=== PATIENT | female | born 1950 | race Caucasian/White ===

== ENCOUNTER → 2016-06-24 | Outpatient (CLI) | payer BC ==
[~2016-06-24] MED LIST: ALLOPURINOL100 MG PO; AMBIEN10 M1 PO; AMERGE2.5 MG PO; ASPIRIN ENTERIC81 M1 PO; ASPIRIN80 MG PO; CINNAMON500 MG PO; CLARITIN10 MG PO; CLINORIL200 MG PO; COMBIVENT1 AR1 IH; CYMBALTA60 MG PO; FLEXERIL5 MG PO; GLIPIZIDE5 MG PO; IMITREX100 MG PO; JANUMET 500 MG-1 TA1 PO; JANUMET PO; K + POTASSIUM20 MEQ PO; LANTUS SOLOS100 U/M1 SC; LEVOFLOXACIN500 MG PO; LIPITOR10 MG PO; LIPITOR40 MG; LISINOPRIL20 MG PO; LODINE400 MG PO; MUCINEX600 MG PO; NEURONTIN300 MG PO; PAMELOR25 MG PO; PAXIL20 MG PO; PERCOCET 325 MG1 TA5 PO; PREDNICOT10 MG PO; PREDNICOT20 MG PO; SULFASALAZINE500 M1 PO; VERAPAMIL HCL180 MG PO; VERAPAMIL HCL240 M1 PO; VITAMIN B11000 MCG/M IM; VITAMIN B6100 MG PO; VITAMIN D31000 I1 PO; ZITHROMAX Z PA250 MG PO; ZYRTEC10 M1 PO; Zestril,Prinivi40 MG PO; [UNRECOGNIZED DRUG - OTHER] PO
[2016-06-24 10:04] LABS: BILIRUBIN NEGATIVE (NEGATIVE); BLOOD NEGATIVE (NEGATIVE); CLARITY CLEAR (CLEAR); COLOR YELLOW (YELLOW); GLUCOSE NEGATIVE (NEGATIVE); KETONE NEGATIVE (NEGATIVE); LEUKO ESTERASE NEGATIVE (NEGATIVE); NITRITE NEGATIVE (NEGATIVE); PROTEIN NEGATIVE (NEGATIVE); SPECIFIC GRAVITY 1.025 (1.005-1.030); UROBILINOGEN 0.2 E.U./dl (0.2-1.0)
[2016-06-24 10:07] LABS: BASO % 0.6 % (0.0-1.0); EOS # 0.3 10*3/uL (0.0-0.4); EOS % 4.8 % (1.0-4.0); HEMATOCRIT 34.1 % (37.0-47.0); HEMOGLOBIN 11.2 g/dl (12.0-16.0); LYMPH % 29.6 % (27.0-41.0); MEAN CELL VOLUME 98.8 fl (81.0-99.0); MEAN CORPUSCULAR HGB 32.5 pg (27.0-31.0); MEAN CORPUSCULAR HGB CONC 32.8 g/dl (33.0-37.0); MONO # 0.5 10*3/uL (0.1-1.0); NEUT # 3.8 10*3/uL (2.3-7.9); NEUT % 56.7 % (47.0-73.0); PLATELET COUNT AUTOMATED 208 10*3/uL (130-400); RED BLOOD COUNT 3.45 10*6/uL (4.10-5.10); WHITE BLOOD COUNT 6.7 10*3/uL (4.8-10.8)
[2016-06-24 10:13] LABS: BACTERIA TRACE; MUCOUS TRACE
[2016-06-24 10:15] LABS: URINE TP/CRE RATIO 0.1 (<0.21)
[2016-06-24 10:42] LABS: ALBUMIN 3.6 gm/dl (3.1-4.5); BILIRUBIN, TOTAL 0.2 mg/dl (0.2-1.0); PHOSPHOROUS 3.8 mg/dL (2.5-4.9); POTASSIUM 4.6 mmol/L (3.5-5.1); TOTAL PROTEIN 7.3 gm/dL (6.4-8.2)
[2016-06-24 10:46] LABS: PTH INTACT 34.7 pg/mL (14.0-72.0); VITAMIN D, 25-HYDROXY 31.5 ng/mL (30-100)
== END | disposition home or self-care (01) ==
LOC: LAB 09:35
PROVIDERS: Internal Medicine Nephrology
DX: N18.4 Chronic kidney disease, stage 4 (severe) (principal)

== ENCOUNTER → 2016-07-04 | Outpatient (CLI) | payer BC | END | disposition home or self-care (01) | LOC: RAD 14:54 | DX: D86.0 Sarcoidosis of lung (principal) ==

== ENCOUNTER → 2016-07-22 | Outpatient (CLI) | payer BC | END | disposition home or self-care (01) | LOC: LAB 12:27 | DX: D86.0 Sarcoidosis of lung (principal) ==

== ENCOUNTER → 2017-01-08 | Outpatient (CLI) | payer MEDICARE ==
[2017-01-08 10:42] LABS: BILIRUBIN NEGATIVE (NEGATIVE); BLOOD NEGATIVE (NEGATIVE); CLARITY CLEAR (CLEAR); COLOR YELLOW (YELLOW); GLUCOSE NEGATIVE (NEGATIVE); KETONE NEGATIVE (NEGATIVE); LEUKO ESTERASE 1+ (NEGATIVE); NITRITE NEGATIVE (NEGATIVE); PH 5.5 (5.0-9.0); UROBILINOGEN 0.2 E.U./dl (0.2-1.0)
[2017-01-08 10:51] LABS: URINE CREATININE RANDOM 93.2 mg/dL
[2017-01-08 10:52] LABS: BASO % 0.4 % (0.0-1.0); EOS # 0.4 10*3/uL (0.0-0.4); EOS % 4.7 % (1.0-4.0); HEMATOCRIT 35.8 % (37.0-47.0); HEMOGLOBIN 11.7 g/dl (12.0-16.0); LYMPH # 2.1 10*3/uL (1.3-4.4); LYMPH % 27.2 % (27.0-41.0); MEAN CELL VOLUME 99.7 fl (81.0-99.0); MEAN CORPUSCULAR HGB 32.6 pg (27.0-31.0); MEAN CORPUSCULAR HGB CONC 32.7 g/dl (33.0-37.0); MEAN PLATELET VOLUME 10.9 fl (9.6-12.3); MONO # 0.5 10*3/uL (0.1-1.0); MONO % 6.3 % (3.0-9.0); NEUT # 4.6 10*3/uL (2.3-7.9); NEUT % 61.1 % (47.0-73.0); PLATELET COUNT AUTOMATED 202 10*3/uL (130-400); RED BLOOD COUNT 3.59 10*6/uL (4.10-5.10); WHITE BLOOD COUNT 7.6 10*3/uL (4.8-10.8)
[2017-01-08 11:04] LABS: BACTERIA 1+
[2017-01-08 11:12] LABS: ALBUMIN 3.7 gm/dl (3.1-4.5); CREATININE 1.67 mg/dL (0.55-1.02); POTASSIUM 4.9 mmol/L (3.5-5.1); TOTAL PROTEIN 7.5 gm/dL (6.4-8.2)
[2017-01-08 11:19] LABS: THYROID STIM HORMONE (HS) 1.84 uIU/ml (0.358-4.75)
== END | disposition home or self-care (01) ==
LOC: LAB 10:15
PROVIDERS: Internal Medicine; Internal Medicine Nephrology
DX: I12.9 Hypertensive chronic kidney disease with stage 1 through stage 4 chronic kidney disease, or unspecified chronic kidney disease (principal); N18.3 Chronic kidney disease, stage 3 (moderate); E55.9 Vitamin D deficiency, unspecified; E78.00 Pure hypercholesterolemia, unspecified

== ENCOUNTER → 2017-01-19 | Outpatient (CLI) | payer MEDICARE | END | disposition home or self-care (01) | LOC: RAD 13:22 | DX: M16.10 Unilateral primary osteoarthritis, unspecified hip (principal) ==

== ENCOUNTER → 2017-02-17 | Outpatient (CLI) | payer MEDICARE | END | disposition home or self-care (01) | LOC: RAD 17:07 | DX: R22.0 Localized swelling, mass and lump, head (principal) ==

== ENCOUNTER → 2017-03-24 | Outpatient (CLI) | payer MEDICARE ==
[~2017-03-24] MED LIST changes: -AMBIEN10 M1 PO; +AMBIEN5 MG PO; +GERI-HYDROLAC222 M1 T; +GLIPIZIDE10 M2 PO; -GLIPIZIDE5 MG PO; +HALOBETASOL PRO15 GM T; +JANUVIA25 MG PO; -LIPITOR10 MG PO; +LIPITOR20 MG PO; +MULTIPLE VITAM1 EAC1 PO; +PSORCON T; +VIT C PO; +[UNRECOGNIZED DRUG - OTHER] PO; +[UNRECOGNIZED DRUG - OTHER] PO
--- NOTE | ~2017-03-24 | ST ---
[place], [place] EXERCISE STRESS TEST REPORT NAME: ASHLEY CHAN UNIT #: [id number] ROOM: DOCTOR: JAMEEL TRAVIS MD BIRTHDATE: [birth year] DOS: 03/24/2017 LEXISCAN PORTION OF THE LEXISCAN CARDIOLITE Baseline cardiogram, sinus rhythm with poor R-wave progression in the anterior leads, 0.4 mg of Lexiscan, duration of 10 seconds. With Lexiscan, no new EKG changes. No chest pain. Blood pressure and heart rate response was normal. Nuclear images will be reported separately. JAMEEL TRAVIS MD CM:STRESS:EXERCISE STRESS TEST REPORT [id number] JAMEEL TRAVIS MD
== END ==
LOC: CARD 01:07
DX: R94.31 Abnormal electrocardiogram [ECG] [EKG] (principal)

== ENCOUNTER → 2017-05-07 | Outpatient (CLI) | payer MEDICARE | END | disposition home or self-care (01) | LOC: MAMMO 08:01 | DX: Z12.31 Encounter for screening mammogram for malignant neoplasm of breast (principal) ==

== ENCOUNTER → 2017-05-21 | Outpatient (CLI) | payer MEDICARE | END | disposition home or self-care (01) | LOC: MAMMO 05-14 13:30 | DX: R92.8 Other abnormal and inconclusive findings on diagnostic imaging of breast (principal) ==

== ENCOUNTER → 2017-06-02 | Day surgery (SDC) | payer MEDICARE ==
[2017-06-02 13:02] LABS: ACT PARTIAL THROMBO TIME 23.8 SECONDS (20.8-31.5); INTERNATIONAL NORM RATIO 0.9 (2.0-3.5)
== END | disposition home or self-care (01) ==
LOC: SDC 05-28 12:30 → US 05-28 13:00 → RAD 05-28 13:00 → SDC 04:04
DX: N63.11 Unspecified lump in the right breast, upper outer quadrant (principal); I48.91 Unspecified atrial fibrillation; Z88.0 Allergy status to penicillin; Z88.1 Allergy status to other antibiotic agents

== ENCOUNTER → 2017-06-24 | Outpatient (CLI) | payer MEDICARE | END | disposition home or self-care (01) | LOC: MAMMO 08:53 | DX: N63.10 Unspecified lump in the right breast, unspecified quadrant (principal) ==

== ENCOUNTER → 2017-07-09 | Outpatient (CLI) | payer MEDICARE ==
[2017-07-09 16:49] LABS: BASO % 0.5 % (0.0-1.0); EOS # 0.4 10*3/uL (0.0-0.4); EOS % 5.3 % (1.0-4.0); HEMATOCRIT 37.5 % (37.0-47.0); HEMOGLOBIN 12.5 g/dl (12.0-16.0); LYMPH # 2.9 10*3/uL (1.3-4.4); LYMPH % 36.1 % (27.0-41.0); MEAN CELL VOLUME 97.2 fl (81.0-99.0); MEAN CORPUSCULAR HGB 32.4 pg (27.0-31.0); MEAN CORPUSCULAR HGB CONC 33.3 g/dl (33.0-37.0); MEAN PLATELET VOLUME 11.3 fl (9.6-12.3); MONO # 0.7 10*3/uL (0.1-1.0); MONO % 9.1 % (3.0-9.0); NEUT % 48.6 % (47.0-73.0); PLATELET COUNT AUTOMATED 276 10*3/uL (130-400); RED BLOOD COUNT 3.86 10*6/uL (4.10-5.10); RED CELL DISTRI WIDTH 12.6 % (0-14.5); WHITE BLOOD COUNT 8.1 10*3/uL (4.8-10.8)
[2017-07-09 17:14] LABS: ALBUMIN 3.7 gm/dl (3.1-4.5); CREATININE 1.84 mg/dL (0.55-1.02); PHOSPHOROUS 4.5 mg/dL (2.5-4.9); POTASSIUM 4.2 mmol/L (3.5-5.1)
[2017-07-09 18:01] LABS: PTH INTACT 73.7 pg/mL (14.0-72.0); VITAMIN D, 25-HYDROXY 19.3 ng/mL (30-100)
[2017-07-09 20:02] LABS: BILIRUBIN NEGATIVE (NEGATIVE); BLOOD NEGATIVE (NEGATIVE); CLARITY CLEAR (CLEAR); COLOR YELLOW (YELLOW); GLUCOSE NEGATIVE (NEGATIVE); KETONE NEGATIVE (NEGATIVE); LEUKO ESTERASE 1+ (NEGATIVE); NITRITE NEGATIVE (NEGATIVE); SPECIFIC GRAVITY 1.025 (1.005-1.030); UROBILINOGEN 0.2 E.U./dl (0.2-1.0)
[2017-07-09 20:08] LABS: BACTERIA 2+; WBC 21-30 wbc/hpf (0-5)
== END | disposition home or self-care (01) ==
LOC: LAB 15:57
PROVIDERS: Internal Medicine Nephrology
DX: N18.3 Chronic kidney disease, stage 3 (moderate) (principal)

== ENCOUNTER → 2017-10-06 | Outpatient (CLI) | payer MEDICARE ==
[~2017-10-06] MED LIST changes: +PERCOCET 7.5-31 EACH PO; +TRAD5TAB1 PO
== END | disposition home or self-care (01) ==
LOC: US 10:13
DX: N63.10 Unspecified lump in the right breast, unspecified quadrant (principal); L20.89 Other atopic dermatitis

== ENCOUNTER → 2017-12-31 | Outpatient (CLI) | payer MEDICARE ==
[~2017-12-31] MED LIST changes: +CALCIUM500 M1 PO; +KENALOG 0.1%80 GM T; +NORVASC5 MG PO; +NYSTOP60 GM T; +PERCOCET 10-321 EACH PO; +SOMA350 MG PO; +TRAMADOL HCL50 MG PO; +VITAMIN C500 M4 PO; -VITAMIN D31000 I1 PO; +VITAMIN D32000 UNI2 PO
[2017-12-31 19:24] LABS: BILIRUBIN NEGATIVE (NEGATIVE); BLOOD NEGATIVE (NEGATIVE); CLARITY CLEAR (CLEAR); COLOR YELLOW (YELLOW); GLUCOSE NEGATIVE (NEGATIVE); KETONE NEGATIVE (NEGATIVE); LEUKO ESTERASE 1+ (NEGATIVE); NITRITE NEGATIVE (NEGATIVE); SPECIFIC GRAVITY <= 1.005 (1.005-1.030); UROBILINOGEN 0.2 E.U./dl (0.2-1.0)
[2017-12-31 19:25] LABS: BASO % 0.4 % (0.0-1.0); EOS # 0.4 10*3/uL (0.0-0.4); HEMATOCRIT 36.1 % (37.0-47.0); LYMPH # 2.4 10*3/uL (1.3-4.4); LYMPH % 25.8 % (27.0-41.0); MEAN CELL VOLUME 95.5 fl (81.0-99.0); MEAN CORPUSCULAR HGB 31.7 pg (27.0-31.0); MEAN CORPUSCULAR HGB CONC 33.2 g/dl (33.0-37.0); MONO # 0.6 10*3/uL (0.1-1.0); MONO % 6.2 % (3.0-9.0); NEUT # 5.8 10*3/uL (2.3-7.9); NEUT % 63.3 % (47.0-73.0); PLATELET COUNT AUTOMATED 240 10*3/uL (130-400); RED BLOOD COUNT 3.78 10*6/uL (4.10-5.10); RED CELL DISTRI WIDTH 12.4 % (0-14.5); WHITE BLOOD COUNT 9.2 10*3/uL (4.8-10.8)
[2017-12-31 19:30] LABS: BACTERIA TRACE
[2017-12-31 19:36] LABS: ALBUMIN 3.8 gm/dl (3.1-4.5); CREATININE 1.46 mg/dL (0.55-1.02); PHOSPHOROUS 2.7 mg/dL (2.5-4.9); POTASSIUM 4.3 mmol/L (3.5-5.1)
[2017-12-31 19:49] LABS: PTH INTACT 47.3 pg/mL (18.5-88.0); VITAMIN D, 25-HYDROXY 35.5 ng/mL (30-100)
== END | disposition home or self-care (01) ==
LOC: LAB 18:31
PROVIDERS: Internal Medicine Nephrology
DX: N18.3 Chronic kidney disease, stage 3 (moderate) (principal); E55.9 Vitamin D deficiency, unspecified

== ENCOUNTER 2018-01-08 20:27 | Inpatient (IN) | payer MEDICARE ==
[~2018-01-08] VITALS: Ht 154.9 cm; Wt 106.7 kg
--- NOTE | ~2018-01-08 | CON ---
[place], [place] REPORT OF CONSULTATION NAME: ASHLEY CHAN UNIT #: [id number] ROOM: 532 DOCTOR: KEVIN MARIO DPM BIRTHDATE: [birth year] DOS: 01/09/2018 SUBJECTIVE: The patient is a 67-year-old female well known to our practice. The patient underwent surgical resection of bone and repair of Achilles tendon yesterday by Dr. Avila. The patient was unable to get her pain medication postoperatively filled due to history of pain management and subsequently was admitted for pain management. PAST MEDICAL HISTORY: The patient has a past medical history of anxiety, atopic dermatitis, chronic kidney disease stage 3, type 2 diabetes, hyperlipidemia, hypertension, insomnia, migraine headaches, neuropathic pain, osteoarthritis, rheumatoid arthritis, sarcoidosis, vitamin D deficiency. PAST SURGICAL HISTORY: Two sections, bilateral knee replacement, cholecystectomy, tonsillectomy, complete hysterectomy, left foot surgery yesterday. SOCIAL HISTORY: Denies illicit drug use, denies tobacco use. Denies alcohol consumption. FAMILY HISTORY: Father at age 84 of leukemia. Mother at age 82 of emphysema, COPD. ALLERGIES: PENICILLIN, IVP DYE, SULFA. LOWER EXTREMITY EXAMINATION: Pedal pulses palpable. The patient's postoperative dressing and pneumatic walker intact without breakthrough bleeding or complication. Negative Homans sign. No signs of complication. Pain is well controlled today after the medications, which the patient received in house. ASSESSMENT: Achilles tendinosis, exostosis, posterior right calcaneus. Postoperative pain, diabetes. PLAN: Evaluation and management, keep surgical dressing intact, keep leg elevated and apply ice as needed 30 minutes per hour while awake behind the left knee. Continue pneumatic walker and nonweightbearing. The patient is currently on Lovenox 30 mg SC daily and CHAZ hose for VTE prophylaxis. The patient will be seen for continued care and followup while she is inhouse and can be discharged as per discretion of Internal Medicine once the pain is well controlled. [place], [place] REPORT OF CONSULTATION NAME: ASHLEY CHAN UNIT #: [id number] ROOM: 532 DOCTOR: KEVIN MARIO DPM BIRTHDATE: [birth year] KEVIN MARIO DPM CM:CONSTR:REPORT OF CONSULTATION 1119 01/09/18 1705 interface
[~2018-01-08 20:27] MED LIST changes: -CALCIUM500 M1 PO; -KENALOG 0.1%80 GM T; -NORVASC5 MG PO; -NYSTOP60 GM T; -PERCOCET 10-321 EACH PO; -SOMA350 MG PO; -TRAMADOL HCL50 MG PO; -VITAMIN C500 M4 PO
[2018-01-08 20:28] VITALS: BP 117/55
[2018-01-08] MEDS ORDERED: PERCOCET 10-321 EACH PO (21:48)
[2018-01-08] MEDS ORDERED: SOMA350 MG PO (21:50)
[2018-01-08 22:16] VITALS: BP 108/62
[2018-01-08 22:20] VITALS: BP 109/45
[2018-01-08] MEDS ORDERED: NORVASC5 MG PO (22:35)
[2018-01-08] MEDS ORDERED: KENALOG 0.1%80 GM T (22:39)
[2018-01-08] MEDS ORDERED: CALCIUM500 M1 PO (22:41)
[2018-01-08] MEDS ORDERED: VITAMIN C500 M4 PO (22:42)
[2018-01-09] VITALS: BP 106/51
[2018-01-09 06:52] LABS: BASO % 0.1 % (0.0-1.0); HEMATOCRIT 31.3 % (37.0-47.0); HEMOGLOBIN 10.5 g/dl (12.0-16.0); LYMPH # 1.3 10*3/uL (1.3-4.4); LYMPH % 9.8 % (27.0-41.0); MEAN CELL VOLUME 96.6 fl (81.0-99.0); MEAN CORPUSCULAR HGB 32.4 pg (27.0-31.0); MEAN CORPUSCULAR HGB CONC 33.5 g/dl (33.0-37.0); MEAN PLATELET VOLUME 11.6 fl (9.6-12.3); MONO # 0.7 10*3/uL (0.1-1.0); MONO % 5.5 % (3.0-9.0); NEUT # 10.9 10*3/uL (2.3-7.9); NEUT % 84.3 % (47.0-73.0); PLATELET COUNT AUTOMATED 202 10*3/uL (130-400); RED BLOOD COUNT 3.24 10*6/uL (4.10-5.10); RED CELL DISTRI WIDTH 12.3 % (0-14.5); WHITE BLOOD COUNT 12.9 10*3/uL (4.8-10.8)
[2018-01-09 07:18] LABS: ALBUMIN 2.9 gm/dl (3.1-4.5); CREATININE 1.61 mg/dL (0.55-1.02); PHOSPHOROUS 3.3 mg/dL (2.5-4.9); POTASSIUM 5.6 mmol/L (3.5-5.1); TOTAL PROTEIN 6.5 gm/dL (6.4-8.2)
[2018-01-09 07:21] LABS: ACT PARTIAL THROMBO TIME 23.8 SECONDS (20.8-31.5); INTERNATIONAL NORM RATIO 0.9 (2.0-3.5)
[2018-01-09 07:23] LABS: THYROID STIM HORMONE (HS) 0.428 uIU/ml (0.358-4.75)
[2018-01-09 08:00] VITALS: BP 102/48
[2018-01-09 12:00] VITALS: BP 110/55
[2018-01-09 15:13] LABS: CREATININE 1.54 mg/dL (0.55-1.02); POTASSIUM 4.6 mmol/L (3.5-5.1)
[2018-01-09 16:00] VITALS: BP 116/57
[2018-01-09 20:00] VITALS: BP 115/52
[2018-01-10] VITALS: BP 121/58
[2018-01-10 06:01] LABS: BASO % 0.3 % (0.0-1.0); EOS # 0.1 10*3/uL (0.0-0.4); EOS % 0.8 % (1.0-4.0); HEMATOCRIT 30.1 % (37.0-47.0); HEMOGLOBIN 9.9 g/dl (12.0-16.0); LYMPH # 2.5 10*3/uL (1.3-4.4); LYMPH % 28.9 % (27.0-41.0); MEAN CELL VOLUME 96.8 fl (81.0-99.0); MEAN CORPUSCULAR HGB 31.8 pg (27.0-31.0); MEAN CORPUSCULAR HGB CONC 32.9 g/dl (33.0-37.0); MEAN PLATELET VOLUME 12.2 fl (9.6-12.3); MONO # 0.8 10*3/uL (0.1-1.0); MONO % 9.1 % (3.0-9.0); NEUT # 5.3 10*3/uL (2.3-7.9); NEUT % 60.6 % (47.0-73.0); PLATELET COUNT AUTOMATED 169 10*3/uL (130-400); RED BLOOD COUNT 3.11 10*6/uL (4.10-5.10); RED CELL DISTRI WIDTH 12.5 % (0-14.5); WHITE BLOOD COUNT 8.7 10*3/uL (4.8-10.8)
[2018-01-10 06:19] LABS: ALBUMIN 2.8 gm/dl (3.1-4.5); CREATININE 1.4 mg/dL (0.55-1.02); POTASSIUM 4.4 mmol/L (3.5-5.1)
[2018-01-10 08:00] VITALS: BP 134/66
[2018-01-10 09:54] VITALS: BP 138/70
[2018-01-10 12:00] VITALS: BP 121/56
[2018-01-10 16:00] VITALS: BP 121/74
[2018-01-10 20:00] VITALS: BP 121/58
[2018-01-11] VITALS: BP 107/55
[2018-01-11 06:27] LABS: BASO % 0.3 % (0.0-1.0); EOS # 0.4 10*3/uL (0.0-0.4); EOS % 4.8 % (1.0-4.0); HEMOGLOBIN 10.5 g/dl (12.0-16.0); LYMPH # 2.9 10*3/uL (1.3-4.4); LYMPH % 32.8 % (27.0-41.0); MEAN CELL VOLUME 97.9 fl (81.0-99.0); MEAN CORPUSCULAR HGB 31.2 pg (27.0-31.0); MEAN CORPUSCULAR HGB CONC 31.8 g/dl (33.0-37.0); MEAN PLATELET VOLUME 11.6 fl (9.6-12.3); MONO % 10.7 % (3.0-9.0); NEUT # 4.6 10*3/uL (2.3-7.9); NEUT % 51.2 % (47.0-73.0); PLATELET COUNT AUTOMATED 174 10*3/uL (130-400); RED BLOOD COUNT 3.37 10*6/uL (4.10-5.10); RED CELL DISTRI WIDTH 12.4 % (0-14.5); WHITE BLOOD COUNT 8.9 10*3/uL (4.8-10.8)
[2018-01-11 06:50] LABS: CREATININE 1.2 mg/dL (0.55-1.02); POTASSIUM 4.4 mmol/L (3.5-5.1)
[2018-01-11 08:00] VITALS: BP 146/70
[2018-01-11 12:00] VITALS: BP 118/57
[2018-01-11 16:00] VITALS: BP 129/61
[2018-01-11 20:00] VITALS: BP 131/64
[2018-01-12] VITALS: BP 117/63
[2018-01-12 06:47] LABS: CREATININE 1.16 mg/dL (0.55-1.02); POTASSIUM 3.8 mmol/L (3.5-5.1)
[2018-01-12 08:00] VITALS: BP 117/71
[2018-01-12 12:00] VITALS: BP 125/65
[2018-01-12 16:00] VITALS: BP 126/55
[2018-01-12 20:00] VITALS: BP 119/55
[2018-01-13] VITALS: BP 110/50
[2018-01-13 08:00] VITALS: BP 121/68
[2018-01-13 08:16] LABS: CREATININE 1.32 mg/dL (0.55-1.02); POTASSIUM 4.2 mmol/L (3.5-5.1)
[2018-01-13 12:00] VITALS: BP 133/65
[2018-01-13 16:00] VITALS: BP 99/61
[2018-01-13] MEDS ORDERED: TRAMADOL HCL50 MG PO (18:06)
[2018-01-13] MEDS ORDERED: NYSTOP60 GM T (18:06)
== END 2018-01-13 20:26 | disposition other institution (70) | DRG 947 ==
LOC: ED 20:27 → EDHOLD 21:49 → 5E 21:49
PROVIDERS: Internal Medicine; Internal Medicine Nephrology; Student in an Organized Health Care Education/Training Program
DX: G89.18 Other acute postprocedural pain (principal); N17.0 Acute kidney failure with tubular necrosis; R65.10 Systemic inflammatory response syndrome (SIRS) of non-infectious origin without acute organ dysfunction; Z68.41 Body mass index [BMI] 40.0-44.9, adult; M79.672 Pain in left foot; E11.40 Type 2 diabetes mellitus with diabetic neuropathy, unspecified; E78.5 Hyperlipidemia, unspecified; E66.01 Morbid (severe) obesity due to excess calories; F41.9 Anxiety disorder, unspecified; D86.9 Sarcoidosis, unspecified; N18.3 Chronic kidney disease, stage 3 (moderate); M19.90 Unspecified osteoarthritis, unspecified site; Z96.653 Presence of artificial knee joint, bilateral; M06.9 Rheumatoid arthritis, unspecified; I12.9 Hypertensive chronic kidney disease with stage 1 through stage 4 chronic kidney disease, or unspecified chronic kidney disease; E11.22 Type 2 diabetes mellitus with diabetic chronic kidney disease; E55.9 Vitamin D deficiency, unspecified; G47.00 Insomnia, unspecified; G43.909 Migraine, unspecified, not intractable, without status migrainosus; L20.89 Other atopic dermatitis; G89.4 Chronic pain syndrome; Z88.0 Allergy status to penicillin; Z88.2 Allergy status to sulfonamides; Z91.041 Radiographic dye allergy status; Z90.49 Acquired absence of other specified parts of digestive tract; Z90.710 Acquired absence of both cervix and uterus; Z82.49 Family history of ischemic heart disease and other diseases of the circulatory system; Z83.3 Family history of diabetes mellitus; Z80.6 Family history of leukemia; Z82.3 Family history of stroke; Z82.5 Family history of asthma and other chronic lower respiratory diseases; Z79.899 Other long term (current) drug therapy

== ENCOUNTER → 2018-03-17 | Day surgery (SDC) | payer MEDICARE ==
[~2018-03-17] MED LIST changes: +CALCIUM500 M1 PO; +KENALOG 0.1%80 GM T; +NORVASC5 MG PO; +NYSTOP60 GM T; +PERCOCET 10-321 EACH PO; +SOMA350 MG PO; +TRAMADOL HCL50 MG PO; +VITAMIN C500 M4 PO
[2018-03-17 10:24] LABS: ACT PARTIAL THROMBO TIME 24.1 SECONDS (20.8-31.5); INTERNATIONAL NORM RATIO 0.9 (2.0-3.5)
== END | disposition home or self-care (01) ==
LOC: SDC 04:50
PROVIDERS: Physician Assistant
DX: C50.411 Malignant neoplasm of upper-outer quadrant of right female breast (principal); Z17.0 Estrogen receptor positive status [ER+]; I10 Essential (primary) hypertension; E11.40 Type 2 diabetes mellitus with diabetic neuropathy, unspecified; E78.00 Pure hypercholesterolemia, unspecified; F32.9 Major depressive disorder, single episode, unspecified; Z88.2 Allergy status to sulfonamides; Z88.1 Allergy status to other antibiotic agents; Z88.0 Allergy status to penicillin; Z91.041 Radiographic dye allergy status; Z79.01 Long term (current) use of anticoagulants; Z79.1 Long term (current) use of non-steroidal anti-inflammatories (NSAID); Z79.84 Long term (current) use of oral hypoglycemic drugs; Z79.899 Other long term (current) drug therapy; Z98.890 Other specified postprocedural states; Z96.659 Presence of unspecified artificial knee joint; Z90.49 Acquired absence of other specified parts of digestive tract; Z90.710 Acquired absence of both cervix and uterus; Z83.3 Family history of diabetes mellitus; Z82.49 Family history of ischemic heart disease and other diseases of the circulatory system

== ENCOUNTER → 2018-07-02 | Outpatient (CLI) | payer MEDICARE ==
[2018-07-02 13:09] LABS: BASO % 0.4 % (0.0-1.0); BILIRUBIN NEGATIVE (NEGATIVE); BLOOD NEGATIVE (NEGATIVE); CLARITY SL CLOUDY (CLEAR); COLOR YELLOW (YELLOW); EOS # 0.3 10*3/uL (0.0-0.4); EOS % 4.4 % (1.0-4.0); GLUCOSE NEGATIVE (NEGATIVE); HEMATOCRIT 35.1 % (37.0-47.0); HEMOGLOBIN 11.5 g/dl (12.0-16.0); KETONE NEGATIVE (NEGATIVE); LEUKO ESTERASE 1+ (NEGATIVE); LYMPH # 1.2 10*3/uL (1.3-4.4); LYMPH % 17.8 % (27.0-41.0); MEAN CORPUSCULAR HGB 32.1 pg (27.0-31.0); MEAN CORPUSCULAR HGB CONC 32.8 g/dl (33.0-37.0); MEAN PLATELET VOLUME 12.2 fl (9.6-12.3); MONO # 0.5 10*3/uL (0.1-1.0); MONO % 7.6 % (3.0-9.0); NEUT # 4.8 10*3/uL (2.3-7.9); NEUT % 69.5 % (47.0-73.0); NITRITE NEGATIVE (NEGATIVE); PH 5.5 (5.0-9.0); PLATELET COUNT AUTOMATED 226 10*3/uL (130-400); RED BLOOD COUNT 3.58 10*6/uL (4.10-5.10); RED CELL DISTRI WIDTH 12.9 % (0-14.5); UROBILINOGEN 0.2 E.U./dl (0.2-1.0); WHITE BLOOD COUNT 6.9 10*3/uL (4.8-10.8)
[2018-07-02 13:18] LABS: BACTERIA 1+
[2018-07-02 13:29] LABS: URINE CREATININE RANDOM 76.7 mg/dL
[2018-07-02 13:35] LABS: ALBUMIN 3.4 gm/dl (3.1-4.5); CREATININE 1.38 mg/dL (0.55-1.02); PHOSPHOROUS 3.1 mg/dL (2.5-4.9); POTASSIUM 4.3 mmol/L (3.5-5.1)
[2018-07-02 14:05] LABS: VITAMIN D, 25-HYDROXY 28.2 ng/mL (30-100)
[2018-07-02 14:06] LABS: PTH INTACT 45.6 pg/mL (18.5-88.0)
== END | disposition home or self-care (01) ==
LOC: LAB 11:50
PROVIDERS: Internal Medicine Nephrology
DX: E11.22 Type 2 diabetes mellitus with diabetic chronic kidney disease (principal); N18.3 Chronic kidney disease, stage 3 (moderate); E55.9 Vitamin D deficiency, unspecified

== ENCOUNTER → 2018-11-30 | Outpatient (CLI) | payer MEDICARE ==
[2018-11-30 12:00] LABS: BILIRUBIN NEGATIVE (NEGATIVE); BLOOD NEGATIVE (NEGATIVE); CLARITY SL CLOUDY (CLEAR); COLOR YELLOW (YELLOW); GLUCOSE NEGATIVE (NEGATIVE); KETONE NEGATIVE (NEGATIVE); LEUKO ESTERASE NEGATIVE (NEGATIVE); NITRITE NEGATIVE (NEGATIVE); UROBILINOGEN 0.2 E.U./dl (0.2-1.0)
[2018-11-30 12:08] LABS: URINE CREATININE RANDOM 78.3 mg/dL
[2018-11-30 12:20] LABS: ALBUMIN 3.2 gm/dl (3.1-4.5); CREATININE 1.42 mg/dL (0.55-1.02); POTASSIUM 4.1 mmol/L (3.5-5.1)
[2018-11-30 12:27] LABS: HEMATOCRIT 34.8 % (37.0-47.0); HEMOGLOBIN 11.2 g/dl (12.0-16.0); MEAN CORPUSCULAR HGB 32.2 pg (27.0-31.0); MEAN CORPUSCULAR HGB CONC 32.2 g/dl (33.0-37.0); NUCLEATED RED BLOOD CELL 0.4 % (0.0-0.0); PLATELET COUNT AUTOMATED 198 10*3/uL (130-400); RED BLOOD COUNT 3.48 10*6/uL (4.10-5.10); RED CELL DISTRI WIDTH 16.9 % (0-14.5)
[2018-11-30 12:31] LABS: VITAMIN D, 25-HYDROXY 38.3 ng/mL (30-100)
[2018-11-30 12:32] LABS: PTH INTACT 50.8 pg/mL (18.5-88.0)
[2018-11-30 13:16] LABS: PLATELET SUFFICIENCY NORMAL (NORMAL); POLYCHROMASIA SLIGHT; TOTAL CELLS COUNTED 100 #CELLS
== END | disposition home or self-care (01) ==
LOC: LAB 11:14
PROVIDERS: Internal Medicine Nephrology
DX: E11.22 Type 2 diabetes mellitus with diabetic chronic kidney disease (principal); N18.3 Chronic kidney disease, stage 3 (moderate); E55.9 Vitamin D deficiency, unspecified

== ENCOUNTER → 2019-02-01 | Outpatient (CLI) | payer MEDICARE ==
[2019-02-01 10:53] LABS: ALBUMIN 3.1 gm/dl (3.1-4.5); CREATININE 1.63 mg/dL (0.55-1.02); FREE T4 0.87 ng/dl (0.76-1.46); POTASSIUM 4.3 mmol/L (3.5-5.1)
[2019-02-01 11:03] LABS: THYROID STIM HORMONE (HS) 0.607 uIU/ml (0.358-4.75)
[2019-02-01 11:15] LABS: BILIRUBIN NEGATIVE (NEGATIVE); BLOOD NEGATIVE (NEGATIVE); CLARITY SL CLOUDY (CLEAR); COLOR YELLOW (YELLOW); GLUCOSE NEGATIVE (NEGATIVE); KETONE NEGATIVE (NEGATIVE); LEUKO ESTERASE 1+ (NEGATIVE); NITRITE NEGATIVE (NEGATIVE); UROBILINOGEN 0.2 E.U./dl (0.2-1.0)
[2019-02-01 11:54] LABS: BACTERIA TRACE
== END | disposition home or self-care (01) ==
LOC: LAB 09:33
PROVIDERS: Internal Medicine
DX: E11.65 Type 2 diabetes mellitus with hyperglycemia (principal); E04.9 Nontoxic goiter, unspecified; E55.9 Vitamin D deficiency, unspecified; E78.5 Hyperlipidemia, unspecified

== ENCOUNTER 2019-03-22 11:57 | Inpatient (IN) | payer MEDICARE ==
[~2019-03-22] VITALS: Ht 157.5 cm; Wt 104.8 kg
[2019-03-22 12:06] VITALS: BP 135/66
[2019-03-22 12:49] LABS: BASO % 0.2 % (0.0-1.0); EOS # 0.1 10*3/uL (0.0-0.4); EOS % 1.1 % (1.0-4.0); HEMATOCRIT 38.8 % (37.0-47.0); HEMOGLOBIN 12.2 g/dl (12.0-16.0); LYMPH # 0.7 10*3/uL (1.3-4.4); MEAN CELL VOLUME 96.3 fl (81.0-99.0); MEAN CORPUSCULAR HGB 30.3 pg (27.0-31.0); MEAN CORPUSCULAR HGB CONC 31.4 g/dl (33.0-37.0); MEAN PLATELET VOLUME 11.4 fl (9.6-12.3); MONO # 1.1 10*3/uL (0.1-1.0); MONO % 8.6 % (3.0-9.0); NEUT # 11.2 10*3/uL (2.3-7.9); NEUT % 84.7 % (47.0-73.0); PLATELET COUNT AUTOMATED 222 10*3/uL (130-400); RED BLOOD COUNT 4.03 10*6/uL (4.10-5.10); RED CELL DISTRI WIDTH 14.1 % (0-14.5); WHITE BLOOD COUNT 13.2 10*3/uL (4.8-10.8)
[2019-03-22 13:00] LABS: ACT PARTIAL THROMBO TIME 27.9 SECONDS (20.0-32.1); INTERNATIONAL NORM RATIO 0.9 (2.0-3.5)
[2019-03-22 13:06] LABS: ALBUMIN 3.6 gm/dl (3.1-4.5); ALKALINE PHOSPHATASE 78 U/L (45-117); BUN 27 mg/dl (7-24); CHLORIDE 104 mmol/L (98-107); CREATININE 1.74 mg/dL (0.55-1.02); POTASSIUM 3.5 mmol/L (3.5-5.1); SGOT/AST 9 IU/L (3-35); SGPT/ALT 24 U/L (12-78); SODIUM 140 mmol/L (136-145)
[2019-03-22 13:10] LABS: TROPONIN I < 0.015 ng/ml (<0.045)
[2019-03-22 13:56] VITALS: BP 132/78
--- NOTE | 2019-03-22 14:10 | NUR ---
A 69, admitted to , under the services of ZEN Anderson DO with a diagnosis of CHEST PAIN. Chief complaint is RIGHT SIDE EPIGASTRIC AREA/CHEST PAIN. Patient arrived via bed from ER. Monitor applied. Initial assessment completed. Vital signs taken and recorded. ZEN ANDERSON DO notified of admission to the unit. Orders received. See assessment for past medical history, medications and allergies. Patient and/or family oriented to unit. [address] visitation policy reviewed. Clothing/patient valuable form completed. SUZANNA ROMAN R
[2019-03-22 14:15] VITALS: BP 124/65
[2019-03-22] MEDS ORDERED: PREDNISONE5 MG PO (14:42)
[2019-03-22] MEDS ORDERED: ARIMIDEX1 MG PO (14:43)
[2019-03-22] MEDS ORDERED: ELIQUIS5 M1 PO (14:43)
[2019-03-22] MEDS ORDERED: DYAZIDE 37.5-21 EACH PO (14:43)
[2019-03-22] MEDS ORDERED: NOVOLOG10 ML SC ×3 (14:44→14:46)
[2019-03-22] MEDS ORDERED: HUMULIN N100 UNIT/1 SQ (14:46)
--- NOTE | 2019-03-22 14:58 | NUR ---
SONIA SCHULER AWARE PT MEDICATIONS ARE VERIFIED AND NEED ORDERED.
--- NOTE | 2019-03-22 16:05 | NUR ---
Patient resting quietly with no c/o discomfort. Respirations easy and regular. Vital signs stable. No overt distress. ANTONIA EL
--- NOTE | 2019-03-22 17:29 | NUR ---
jd updated that med req is done
--- NOTE | 2019-03-22 19:14 | NUR ---
FAMILY MEMBERS COMING TO NURSES STATION STATING THAT PT NEEDS HER CANCER MEDS AND BLOOD THINNER BY 8PM. NOTIFIED OF PATIENT'S MED REC BEING UP TO DATE AND HOME MEDS NOT ORDERED. RN EXPLAINED TO FAMILY THAT RESIDENTS NOTIFIED. PATIENT AND FAMILY VERY UPSET STATING "WHY ARE THEY KEEPING HER HERE IF THEY ARE NOT GIVING HER HER MEDICATIONS?" RN EXPLAINED AND APOLOGIZED FOR DELAY. REASSURED PT & FAMILY THAT HAS BEEN NOTIFIED AND STATES SHE WILL ORDER MEDICATIONS ONCE SHE IS DONE WITH SIGN OFF.
--- NOTE | 2019-03-22 19:52 | NUR ---
CALLED AGAIN REGARDING MED REC AND FAMILY REQUESTING ELIQUIS BY 8PM. STATES THEY ARE WORKING ON IT.
[2019-03-22 20:00] VITALS: BP 138/68
--- NOTE | 2019-03-22 20:00 | NUR ---
PATIENT FAMILY LEAVING AND APPROACHED NURSE FOR A THIRD TIME REGARDING ELIQUIS. AWARE THAT HAS BEEN CALLED FOR THE SECOND TIME SINCE BEGINNING OF THIS RN'S SHIFT. PER , THEY ARE WORKING TO GET MEDICATIONS ORDERED. EXPLAINED THIS TO PT AND FAMILY.
[2019-03-22] MEDS ORDERED: OXYCODONE HCL10 M1 PO (20:27)
--- NOTE | 2019-03-22 20:28 | NUR ---
PT NOW STATING THAT SHE DOES NOT TAKE PERCOCET. SHE TAKES ONLY "THE OXYCODONE PART WITHOUT ANY TYLENOL." STATES IT IS 10 MG. MED REC WAS VERIFIED EARLIER IN AFTERNOON TO INCLUDE PERCOCET 10/325. NEW ORDERS RECEIVED FOR PERCOCET 5/325 & OXYCODONE 5. CHANGES MADE TO MED REC TO REFLECT PATIENT'S CLAIMS. WILL NOTIFY
--- NOTE | 2019-03-22 20:35 | NUR ---
SPOKE WITH DR GANDHI ABOUT PT'S MEDICATION CLAIM HISTORY AND GOT CLARIFICATION OF ORDERS. CONTINUE TO MONITOR THE PT.
--- NOTE | 2019-03-22 22:03 | NUR ---
NOTIFIED OF PATIENT'S REQUEST FOR HOME INSULIN. PT STATES SHE TAKES NOVOLOG & NPH AT HOME AND IS ON A SPECIFIC SCHEDULE. 0800 7 UNITS NOVOLOG + SLIDING SCALE 1200 11 UNITS NOVOLOG + SLIDING SCALE 1700 11 UNITS NOVOLOG + SLIDING SCALE 2200 16 UNITS NPH + NPH SLIDING SCALE NEW ORDERS RECEIVED.
--- NOTE | 2019-03-22 22:35 | NUR ---
PT MEDICATED WITH PO OXYCODONE PER PRN ORDER FOR C/O PAIN "ALL OVER" RATED 8/10. WILL MONITOR EFFECTIVENESS. CALL LIGHT IN REACH.
[2019-03-23] VITALS: BP 103/55
--- NOTE | 2019-03-23 04:25 | NUR ---
PT MEDICATED WITH PO OXYCODONE PER PRN ORDER FOR C/O ARTHRITIS PAIN IN HIPS & SHOULDERS RATED 9/10. WILL MONITOR. CALL LIGHT IN REACH.
[2019-03-23 06:26] LABS: BASO % 0.4 % (0.0-1.0); EOS # 0.3 10*3/uL (0.0-0.4); EOS % 4.2 % (1.0-4.0); HEMATOCRIT 35.6 % (37.0-47.0); HEMOGLOBIN 11.1 g/dl (12.0-16.0); LYMPH # 1.7 10*3/uL (1.3-4.4); LYMPH % 22.3 % (27.0-41.0); MEAN CELL VOLUME 95.7 fl (81.0-99.0); MEAN CORPUSCULAR HGB 29.8 pg (27.0-31.0); MEAN CORPUSCULAR HGB CONC 31.2 g/dl (33.0-37.0); MEAN PLATELET VOLUME 11.6 fl (9.6-12.3); MONO # 0.7 10*3/uL (0.1-1.0); MONO % 9.6 % (3.0-9.0); NEUT # 4.8 10*3/uL (2.3-7.9); PLATELET COUNT AUTOMATED 213 10*3/uL (130-400); RED BLOOD COUNT 3.72 10*6/uL (4.10-5.10); RED CELL DISTRI WIDTH 13.9 % (0-14.5); WHITE BLOOD COUNT 7.6 10*3/uL (4.8-10.8)
--- NOTE | 2019-03-23 06:31 | NUR ---
BSG 77. ORANGE JUICE PROVIDED PER REQUEST. PT DENIES ANY SYMPTOMS. WILL MONITOR.
[2019-03-23 06:37] LABS: ACT PARTIAL THROMBO TIME 30.2 SECONDS (20.0-32.1)
[2019-03-23 07:00] LABS: CREATININE 1.72 mg/dL (0.55-1.02); POTASSIUM 4.1 mmol/L (3.5-5.1)
[2019-03-23 07:09] LABS: THYROID STIM HORMONE (HS) 1.06 uIU/ml (0.358-4.75)
[2019-03-23 08:00] VITALS: BP 120/62
--- NOTE | 2019-03-23 08:31 | NUR ---
ASHLEY CHAN [id number] Please refer to the physician's history and physical for past medical history, comorbid conditions, and allergies. Diagnosis: CHEST PAIN WITH MODERATE RISK FOR CARDIAC ETIOLOGY Edward Score: 19,LOW OR NO RISK WOUND DESCRIPTIONS: 4 intact scabbed areas noted to right hand. No drainage at time of assessment. No redness surrounding the areas at time of assessment. 2 intact scabbed areas noted to left hand. No drainage at time of assessment. No redness surrounding the areas at time of assessment. Patient stated she gets these all the time due to her skin being so thin she bumps it and this happens. Patient states she will care for these areas when she returns home. Surface the patient is resting on: Isoflex SKIN PREVENTION RECOMMENDATION: 1. Pressure redistribution support surface as appropriate 2. Elevate heels 3. Remove boots/TEDS every shift and reapply 4. Head of bed 30 degrees as tolerated 5. Assess nutrition and hydration 6. Manage moisture 7. Avoid the use of containment devices while in bed 8. Use absorptive products on surfaces limit layers of linens on bed 9. Turn and reposition every 1-2 hours in bed and every 1 hour in chair as tolerated 10. Weight shifts every 15 minutes while up in chair 11. Offloading with pillows or device to keep heels elevated off bed 12. Monitor skin at least every shift 13. Inspect under medical devices twice a day WOUND TREATMENT RECOMMENDATIONS:
--- NOTE | 2019-03-23 08:45 | NUR ---
PT SITTING UP AT SIDE OF BED. NO C/O AT THIS TIME. RIGHT FOOT 2ND DIGIT RED, EDEMA. CALL LIGHT IN REACH. SEE SHIFT ASSESSMENT.
--- NOTE | 2019-03-23 09:00 | NUR ---
Internet Project Manager in to talk to patient. Patient states lives at home with . There are few steps in the home. Physician: hillary burns Pharmacy: [facility] Home health services: none Patient's level of ADLs: INDEPENDENT Patient has working utilities: all working DME: none Follow-up physician's appointment after d/c: will be made by hospitalist nurse director upon discharge Does patient want to access PORTAL?: no Discharge plan discussed with patient, she lives at home with , she is independent in adls and ambulation, she states she will return ohme when medically stable and denies any home needs. CHELITA COURTNEY
--- NOTE | 2019-03-23 09:29 | NUR ---
Dr. Russo notified of wound care recommendations.
--- NOTE | 2019-03-23 11:52 | NUR ---
PT MEDICATED WITH NORCO FOR C/O RIGHT FOOT PAIN. CALL LIGHT IN REACH.
[2019-03-23 12:00] VITALS: BP 122/66
[2019-03-23 16:00] VITALS: BP 114/71
--- NOTE | 2019-03-23 17:00 | NUR ---
RESTING IN BED. BSG-190, SEE EMAR. NO C/O AT THIS TIME. CALL LIGHT IN REACH.
--- NOTE | 2019-03-23 19:40 | NUR ---
PRN NORCO GIVEN FOR A PAIN LEVEL OF 8/10. WILL REASSESS EFFECTIVENESS.
[2019-03-23 20:00] VITALS: BP 136/88
--- NOTE | 2019-03-23 20:40 | NUR ---
PRN NORCO WAS SLIGHTLY HELPFUL PER PATIENT.
--- NOTE | 2019-03-23 22:06 | NUR ---
PRN PERCOCET WAS GIVEN FOR A PAIN LEVEL OF 9/10. WILL REASSESS EFFECTIVENESS.
--- NOTE | 2019-03-23 23:00 | NUR ---
PRN PERCOCET WAS EFFECTIVE. PT IS CURRENTLY SLEEPING WITH NO SIGNS OF DISTRESS AT THIS TIME.
[2019-03-23 23:33] VITALS: BP 120/59
--- NOTE | 2019-03-24 04:52 | NUR ---
PRN PERCOCET WAS GIVEN FOR A PAIN LEVEL OF 8/10. WILL REASSESS EFFECTIVENESS.
--- NOTE | 2019-03-24 05:40 | NUR ---
24 HR chart check completed.
--- NOTE | 2019-03-24 05:46 | NUR ---
PRN PERCOCET WAS SLIGHTLY EFFECTIVE WILL CONTINUE TO MONITOR EFFECTIVENESS.
[2019-03-24 06:45] LABS: BASO % 0.5 % (0.0-1.0); EOS # 0.3 10*3/uL (0.0-0.4); EOS % 4.7 % (1.0-4.0); HEMATOCRIT 35.9 % (37.0-47.0); HEMOGLOBIN 11.2 g/dl (12.0-16.0); LYMPH # 1.9 10*3/uL (1.3-4.4); LYMPH % 28.8 % (27.0-41.0); MEAN CELL VOLUME 96.5 fl (81.0-99.0); MEAN CORPUSCULAR HGB 30.1 pg (27.0-31.0); MEAN CORPUSCULAR HGB CONC 31.2 g/dl (33.0-37.0); MEAN PLATELET VOLUME 11.8 fl (9.6-12.3); MONO # 0.8 10*3/uL (0.1-1.0); MONO % 11.5 % (3.0-9.0); NEUT # 3.6 10*3/uL (2.3-7.9); PLATELET COUNT AUTOMATED 227 10*3/uL (130-400); RED BLOOD COUNT 3.72 10*6/uL (4.10-5.10); WHITE BLOOD COUNT 6.6 10*3/uL (4.8-10.8)
[2019-03-24 07:22] LABS: POTASSIUM 3.8 mmol/L (3.5-5.1)
[2019-03-24 07:28] LABS: CREATININE 1.58 mg/dL (0.55-1.02)
--- NOTE | 2019-03-24 09:00 | NUR ---
case management visits with patient, she states she will return home when medically stable and denies any home needs, case management will follow
--- NOTE | 2019-03-24 11:25 | NUR ---
OXYCODONE 10 MG GIVEN FOR C/O PAIN,10/16.
[2019-03-24 12:00] VITALS: BP 118/70
--- NOTE | 2019-03-24 12:05 | NUR ---
Nutritional Support Services Note: Spoke with patient to check on her hand scabs to both right and left. Pt stated that they aren't open and it happens often. Her intakes are good 100%. Continued to encourage Pt to consume adequate nutrition to promote healing. Ivanna Rivera, [employer] student
--- NOTE | 2019-03-24 13:39 | NUR ---
PHYSICAL THERAPY Attempted to see pt for evaluation sitting up at edge of bed states she is going home today and has been ambulating in room without difficulty she has no concerns or issues with her functional activity at this time declining therapy Ivana Calderon PT
--- NOTE | 2019-03-24 14:50 | NUR ---
Discharge instructions reviewed with patient/family. Patient receptive and verbalizes understanding. Follow-up care arranged. Written instructions given to patient/family. CHARLINE DAVIS
== END 2019-03-24 14:50 | disposition home or self-care (01) | DRG 205 ==
LOC: ED 11:57 → 4E 13:34 → EDHOLD 13:34 → 4E 13:37
PROVIDERS: Emergency Medicine; Family Medicine; Internal Medicine; ADMIT Family Medicine
DX: M94.0 Chondrocostal junction syndrome [Tietze] (principal); R65.11 Systemic inflammatory response syndrome (SIRS) of non-infectious origin with acute organ dysfunction; E87.2 Acidosis; Z68.41 Body mass index [BMI] 40.0-44.9, adult; M79.18 Myalgia, other site; D86.9 Sarcoidosis, unspecified; N18.3 Chronic kidney disease, stage 3 (moderate); I12.9 Hypertensive chronic kidney disease with stage 1 through stage 4 chronic kidney disease, or unspecified chronic kidney disease; F41.9 Anxiety disorder, unspecified; E78.5 Hyperlipidemia, unspecified; E11.65 Type 2 diabetes mellitus with hyperglycemia; G89.4 Chronic pain syndrome; E11.22 Type 2 diabetes mellitus with diabetic chronic kidney disease; E83.42 Hypomagnesemia; D64.9 Anemia, unspecified; E66.01 Morbid (severe) obesity due to excess calories; L53.9 Erythematous condition, unspecified; R23.4 Changes in skin texture; Z96.653 Presence of artificial knee joint, bilateral; Z85.3 Personal history of malignant neoplasm of breast; Z79.4 Long term (current) use of insulin; Z79.01 Long term (current) use of anticoagulants; Z86.711 Personal history of pulmonary embolism; Z88.0 Allergy status to penicillin; Z88.2 Allergy status to sulfonamides; Z88.8 Allergy status to other drugs, medicaments and biological substances; Z90.49 Acquired absence of other specified parts of digestive tract; Z90.710 Acquired absence of both cervix and uterus; Z83.3 Family history of diabetes mellitus; Z83.6 Family history of other diseases of the respiratory system; Z80.7 Family history of other malignant neoplasms of lymphoid, hematopoietic and related tissues; Z79.82 Long term (current) use of aspirin

== ENCOUNTER 2019-04-26 18:13 | Inpatient (IN) | payer MEDICARE ==
[~2019-04-26] VITALS: Ht 157.4 cm; Wt 105.2 kg
[~2019-04-26 18:13] MED LIST changes: +ARIMIDEX1 MG PO; +DYAZIDE 37.5-21 EACH PO; +ELIQUIS5 M1 PO; +HUMULIN N100 UNIT/1 SQ; +NOVOLOG10 ML SC; +OXYCODONE HCL10 M1 PO; +PREDNISONE5 MG PO
[2019-04-26 18:27] VITALS: BP 141/66
[2019-04-26 19:26] LABS: BASO % 0.3 % (0.0-1.0); EOS # 0.5 10*3/uL (0.0-0.4); EOS % 7.6 % (1.0-4.0); HEMATOCRIT 36.8 % (37.0-47.0); HEMOGLOBIN 11.6 g/dl (12.0-16.0); LYMPH # 1.2 10*3/uL (1.3-4.4); LYMPH % 17.2 % (27.0-41.0); MEAN CELL VOLUME 94.8 fl (81.0-99.0); MEAN CORPUSCULAR HGB 29.9 pg (27.0-31.0); MEAN CORPUSCULAR HGB CONC 31.5 g/dl (33.0-37.0); MEAN PLATELET VOLUME 11.3 fl (9.6-12.3); MONO # 0.8 10*3/uL (0.1-1.0); MONO % 12.4 % (3.0-9.0); NEUT # 4.1 10*3/uL (2.3-7.9); NEUT % 62.2 % (47.0-73.0); PLATELET COUNT AUTOMATED 228 10*3/uL (130-400); RED BLOOD COUNT 3.88 10*6/uL (4.10-5.10); RED CELL DISTRI WIDTH 14.5 % (0-14.5); WHITE BLOOD COUNT 6.7 10*3/uL (4.8-10.8)
[2019-04-26 19:48] LABS: ALBUMIN 3.2 gm/dl (3.1-4.5); CREATININE 2.1 mg/dL (0.55-1.02); POTASSIUM 4.3 mmol/L (3.5-5.1); TOTAL PROTEIN 6.7 gm/dL (6.4-8.2)
[2019-04-26 20:03] LABS: ACT PARTIAL THROMBO TIME 99.9 SECONDS (20.0-32.1); INTERNATIONAL NORM RATIO > 9.3 (2.0-3.5)
[2019-04-26 23:54] VITALS: BP 109/53
[2019-04-27] VITALS (12 sets, daily range): BP systolic 109–149; BP diastolic 53–89
--- NOTE | 2019-04-27 01:25 | NUR ---
PT PLACED ON INPATIENT BED. PT PROVIDED WARM BLANKET AND READY TO SLEEP FOR NIGHT. PT INSTRUCTED TO CALL FOR ASSISTANCE. CALL HIGGINS AT BEDSIDE. LIGHT DIMMED PER PT REQUEST.
[2019-04-27 06:29] LABS: BASO % 0.4 % (0.0-1.0); EOS # 0.1 10*3/uL (0.0-0.4); HEMATOCRIT 32.3 % (37.0-47.0); HEMOGLOBIN 10.3 g/dl (12.0-16.0); LYMPH # 1.3 10*3/uL (1.3-4.4); LYMPH % 25.8 % (27.0-41.0); MEAN CELL VOLUME 94.4 fl (81.0-99.0); MEAN CORPUSCULAR HGB 30.1 pg (27.0-31.0); MEAN CORPUSCULAR HGB CONC 31.9 g/dl (33.0-37.0); MEAN PLATELET VOLUME 11.8 fl (9.6-12.3); MONO # 0.7 10*3/uL (0.1-1.0); MONO % 14.8 % (3.0-9.0); NEUT # 2.8 10*3/uL (2.3-7.9); NEUT % 56.6 % (47.0-73.0); PLATELET COUNT AUTOMATED 221 10*3/uL (130-400); RED BLOOD COUNT 3.42 10*6/uL (4.10-5.10); RED CELL DISTRI WIDTH 14.4 % (0-14.5); WHITE BLOOD COUNT 4.9 10*3/uL (4.8-10.8)
[2019-04-27 06:43] LABS: CREATININE 1.89 mg/dL (0.55-1.02); POTASSIUM 4.2 mmol/L (3.5-5.1)
[2019-04-27 07:00] LABS: INTERNATIONAL NORM RATIO > 9.3 (2.0-3.5)
--- NOTE | 2019-04-27 07:10 | NUR ---
REPORT TO DUY VINCENT
--- NOTE | 2019-04-27 07:11 | NUR ---
PATIENT REPORT FROM ROSALINA VINCENT AT THIS TIME. PATIENT LAYING IN BED APPEARS IN NO DISTRESS. WILL CONTINUE TO MONITOR.
--- NOTE | 2019-04-27 11:15 | NUR ---
bgl 176 medicated per order
[2019-04-27 12:38] LABS: INTERNATIONAL NORM RATIO > 9.3 (2.0-3.5)
--- NOTE | 2019-04-27 12:40 | NUR ---
CRITICAL LAB VALUES INR GREATER THAN 9.3. DUY VINCENT NOTIFIED.
--- NOTE | 2019-04-27 12:56 | NUR ---
PATIENT ASSIGNED A ROOM. UNABLE TO TAKE PATIENT UP UNTIL NURSE IS BACK FROM LUNCH.
--- NOTE | 2019-04-27 14:24 | NUR ---
PATIENT TAKEN TO 5TH FLOOR BY KEN AUGUST AT THIS TIME.
--- NOTE | 2019-04-27 14:35 | NUR ---
Time: 1434 A 69 year old FEMALE admitted to 5E under services of ROSALINA MORAN DO, Pt. arrived via bed from ER. Chief complaint: ABNORMAL LABS. NAYLA AVALOS
--- NOTE | 2019-04-27 21:00 | NUR ---
PER [facility]SI FOR FINGERSTICK OF 305 CALLS FOR HUMALOG 9 UNITS. PATIENT ONLY WANT 4 UNITS AT THIS TIME. STATED THAT HER GLUCOSE DROPS IN THE MORNING. NOTED THAT NIGHT PRIOR PATIENT RECIEVED 12 UNITS OF INSULIN AND GLUCOSE WAS 75 PER CBC. WILL ACCOMMIDATE PATIENT AT THIS TIME FOR SENSE OF EASE/PATIENT SAFTEY
--- NOTE | 2019-04-27 21:13 | NUR ---
INFORMED THAT PATIENT RECIEVES OXYCODONE 10MG QID PRN FROM PAIN MANAGEMENT FOR SEVER RHEUMATOID ARTHRITIS. ONLY PRN ORDER IS TYLENOL WHICH DOES NOT WORK FOR HER. STATED TO CONTINUE HOME PAIN MEDICATIONS.
--- NOTE | 2019-04-27 21:55 | NUR ---
PATIENT MEDICATED WITH OXYCODONE FOR GENERALIZED PAIN 10/16 AND RESTORIL FOR INSOMNIA. WILL CONTINUE TO MONITOR
--- NOTE | 2019-04-27 22:00 | NUR ---
INFORMED THAT PATIENT MAY BE HAVING REACTION TO PLASMA TRANSFUSION AT THIS TIME. STATED TO GIVE 25MG IV BENADRYL AT THIS TIME AND HOLD ANY OTHER PLASMA TRANSFUSION. LAB MADE AWARE OF REACTION.
--- NOTE | 2019-04-27 22:10 | NUR ---
LAB STATED THAT THEY NEEDED A URINE SAMPLE, NO ORDER NEDED. IV TUBING AND BAGS FROM TRANSFUSION WILL BE SENT TO LAB [facility].
--- NOTE | 2019-04-27 22:46 | NUR ---
[facility] WILL BE PLACED A NURSING MEASAURE AND FOR PATIENT SAFETY. AWAITING HOTEL AND DINING ROOM CASHIER AT THIS TIME.
--- NOTE | 2019-04-27 22:55 | NUR ---
OXYCODONE AND RESTORIL EFFECTIVE
--- NOTE | 2019-04-27 23:00 | NUR ---
PATIENT STATED SHE WAS OK AT THIS TIME, ONLY TIRED FROM MEDICATION GIVEN TO HELP WITH SLEEP. EDEMA STILL NOTED TO LEFT EYE AND LEFT EAR, MINIMALLY DEREASED AT THIS TIME. FOOD SERVICE ASSISTANT PLACED AT THIS TIME. HR NSR 70'S BPM PER CM. WILL CONTINUE TO MONITOR PATIENT
[2019-04-27 23:43] LABS: URINE BLOOD,POST TRANSFUSION NEGATIVE (NEGATIVE)
[2019-04-27 23:50] LABS: URINE RBC,POST TRANSFUSION 0-2 rbc/hpf (0-2)
[2019-04-28] VITALS: BP 114/77
--- NOTE | 2019-04-28 00:40 | NUR ---
ASSESSED SWEELING TO LEFT EYE AND EAR. THERE IS NO MORE EDEMA TO LEFT EAR. NOTED TO HAVE MINIAML AMOUNT TO LEFT CORNER OF EAR. PATIENT RESTING QUIETLY IN BED, NO OVERT DISTRESS NOTED. CALL LIGHT WITHI NREACH
[2019-04-28 06:16] LABS: BASO % 0.2 % (0.0-1.0); EOS # 0.2 10*3/uL (0.0-0.4); EOS % 4.9 % (1.0-4.0); HEMATOCRIT 31.6 % (37.0-47.0); HEMOGLOBIN 10.1 g/dl (12.0-16.0); LYMPH # 1.3 10*3/uL (1.3-4.4); LYMPH % 27.9 % (27.0-41.0); MEAN CELL VOLUME 93.5 fl (81.0-99.0); MEAN CORPUSCULAR HGB 29.9 pg (27.0-31.0); MEAN PLATELET VOLUME 11.5 fl (9.6-12.3); MONO # 0.5 10*3/uL (0.1-1.0); MONO % 11.3 % (3.0-9.0); NEUT # 2.6 10*3/uL (2.3-7.9); NEUT % 55.3 % (47.0-73.0); PLATELET COUNT AUTOMATED 228 10*3/uL (130-400); RED BLOOD COUNT 3.38 10*6/uL (4.10-5.10); WHITE BLOOD COUNT 4.7 10*3/uL (4.8-10.8)
[2019-04-28 06:26] LABS: INTERNATIONAL NORM RATIO 1.8 (2.0-3.5)
[2019-04-28 06:31] LABS: CREATININE 1.67 mg/dL (0.55-1.02); POTASSIUM 4.2 mmol/L (3.5-5.1)
--- NOTE | 2019-04-28 07:02 | NUR ---
ASHLEY CHAN [id number] Please refer to the physician's history and physical for past medical history, comorbid conditions, and allergies. Diagnosis: SUPRATHERAPEUTIC Edward Score: 22,LOW OR NO RISK WOUND DESCRIPTIONS: Wound Number: 1 Location of the wound: LEFT WRIST Type of wound: SKIN TEAR Thickness: Partial Size: 0.8CM X 0.4CM X <0.1CM Tunneling: NONE Undermining: NONE Sinus Tract: NONE Presence of Exudate: NONE Amount: None Color: Red Odor: None Periwound Skin Appearance: Normal Wound edges: APPROXIMATED Pain (associated with wound): NONE AT TIME OF ASSESSMENT How does patient state this happened? PT STATED SHE JUST BUMPED HERSELF AND CAUSED THIS AREA AND THIS HAPPENS ALL THE TIME Surface the patient is resting on: Isoflex SKIN PREVENTION RECOMMENDATION: 1. Pressure redistribution support surface as appropriate 2. Elevate heels 3. Remove boots/TEDS every shift and reapply 4. Head of bed 30 degrees as tolerated 5. Assess nutrition and hydration 6. Manage moisture 7. Avoid the use of containment devices while in bed 8. Use absorptive products on surfaces limit layers of linens on bed 9. Turn and reposition every 1-2 hours in bed and every 1 hour in chair as tolerated 10. Weight shifts every 15 minutes while up in chair 11. Offloading with pillows or device to keep heels elevated off bed 12. Monitor skin at least every shift 13. Inspect under medical devices twice a day WOUND TREATMENT RECOMMENDATIONS: Skin tear guidelines: Cleanse left wrist with nss and apply sureprep around the wound hydrogel to wound bed and cover with bandaid every 2 days and prn for soiling
--- NOTE | 2019-04-28 07:04 | NUR ---
PATIENT MEDICATED WITH OXYCODONE FOR C/O 09/15 GENERALIZED PAIN. WILL MONITOR. SWELLING TO LEFT ONLY LOCALIZED TO INNER LID, EDEMA SIGNIFICANTLY DECREASED.
[2019-04-28 08:00] VITALS: BP 136/63
[2019-04-28 08:01] LABS: ACT PARTIAL THROMBO TIME 106.3 SECONDS (20.0-32.1)
--- NOTE | 2019-04-28 09:00 | NUR ---
Supplemental Manager in to talk to patient. Patient states lives at home with jusband. There are no steps in the home. Physician: hillary burns Pharmacy: [facility] Home health services: none Patient's level of ADLs: INDEPENDENT Patient has working utilities: all working DME: none Follow-up physician's appointment after d/c: will be made by hospitalist nurse director upon discahrge Does patient want to access PORTAL?: no Discharge plan discussed with patient, she states she lives at home with , she is independent in adls and ambulation, she states she will return home when medically stable and denies any home needs, case management will follow. CHELITA COURTNEY
--- NOTE | 2019-04-28 09:04 | NUR ---
Dr. Padilla notified of wound care recommendations
[2019-04-28 12:00] VITALS: BP 138/72
--- NOTE | 2019-04-28 14:20 | NUR ---
Nutritional Support Services Note: Pt is on a regular diet consuming 100% of meals. Skin tear noted to left wrist. Staff to continue to encourage good PO intakes to support healing of skin tear. Will follow if needed. EVA Linares leadership program internship
[2019-04-28] MEDS ORDERED: XARE20MG PO (15:42)
--- NOTE | 2019-04-28 16:20 | NUR ---
Discharge instructions reviewed with patient/family. Patient receptive and verbalizes understanding. Follow-up care arranged. Written instructions given to patient/family. GEE SHANKS
== END 2019-04-28 16:20 | disposition home or self-care (01) | DRG 947 ==
LOC: ED 18:13 → EDHOLD 23:40 → 5E 23:40
PROVIDERS: Internal Medicine; Nurse Practitioner Family; ADMIT Internal Medicine
PROC: 30233K1 Transfusion of Nonautologous Frozen Plasma into Peripheral Vein, Percutaneous Approach (ICD-10-PCS; principal; 2019-04-27)
DX: R79.1 Abnormal coagulation profile (principal); N17.0 Acute kidney failure with tubular necrosis; E11.65 Type 2 diabetes mellitus with hyperglycemia; D64.9 Anemia, unspecified; E11.22 Type 2 diabetes mellitus with diabetic chronic kidney disease; N18.3 Chronic kidney disease, stage 3 (moderate); M06.9 Rheumatoid arthritis, unspecified; I10 Essential (primary) hypertension; E55.9 Vitamin D deficiency, unspecified; G89.4 Chronic pain syndrome; E78.5 Hyperlipidemia, unspecified; F41.9 Anxiety disorder, unspecified; D86.9 Sarcoidosis, unspecified; M19.90 Unspecified osteoarthritis, unspecified site; Z96.653 Presence of artificial knee joint, bilateral; E66.01 Morbid (severe) obesity due to excess calories; G43.909 Migraine, unspecified, not intractable, without status migrainosus; T45.515A Adverse effect of anticoagulants, initial encounter; T80.89XA Other complications following infusion, transfusion and therapeutic injection, initial encounter; Y84.8 Other medical procedures as the cause of abnormal reaction of the patient, or of later complication, without mention of misadventure at the time of the procedure; Y92.238 Other place in hospital as the place of occurrence of the external cause; Y92.89 Other specified places as the place of occurrence of the external cause; Z86.711 Personal history of pulmonary embolism; Z85.3 Personal history of malignant neoplasm of breast; Z90.49 Acquired absence of other specified parts of digestive tract; Z92.3 Personal history of irradiation; Z98.891 History of uterine scar from previous surgery; Z90.710 Acquired absence of both cervix and uterus; Z83.3 Family history of diabetes mellitus; Z82.5 Family history of asthma and other chronic lower respiratory diseases; Z80.6 Family history of leukemia; Z84.89 Family history of other specified conditions; Z81.2 Family history of tobacco abuse and dependence; Z88.0 Allergy status to penicillin; Z88.2 Allergy status to sulfonamides; Z91.041 Radiographic dye allergy status; Z79.899 Other long term (current) drug therapy; Z79.82 Long term (current) use of aspirin; Z79.52 Long term (current) use of systemic steroids; Z68.37 Body mass index [BMI] 37.0-37.9, adult

== ENCOUNTER 2019-05-02 17:06 | Inpatient (IN) | payer MEDICARE ==
[~2019-05-02] VITALS: Ht 157.5 cm; Wt 106.4 kg
[~2019-05-02 17:06] MED LIST changes: +XARE20MG PO
[2019-05-02 17:13] VITALS: BP 123/57
[2019-05-02 18:27] LABS: BASO % 0.2 % (0.0-1.0); EOS # 0.1 10*3/uL (0.0-0.4); EOS % 1.2 % (1.0-4.0); HEMATOCRIT 33.2 % (37.0-47.0); HEMOGLOBIN 10.4 g/dl (12.0-16.0); LYMPH # 0.6 10*3/uL (1.3-4.4); MEAN CELL VOLUME 94.6 fl (81.0-99.0); MEAN CORPUSCULAR HGB 29.6 pg (27.0-31.0); MEAN CORPUSCULAR HGB CONC 31.3 g/dl (33.0-37.0); MEAN PLATELET VOLUME 11.1 fl (9.6-12.3); MONO # 0.7 10*3/uL (0.1-1.0); MONO % 7.2 % (3.0-9.0); NEUT # 8.1 10*3/uL (2.3-7.9); PLATELET COUNT AUTOMATED 233 10*3/uL (130-400); RED BLOOD COUNT 3.51 10*6/uL (4.10-5.10); WHITE BLOOD COUNT 9.5 10*3/uL (4.8-10.8)
[2019-05-02 18:43] LABS: CREATININE 1.83 mg/dL (0.55-1.02); TOTAL PROTEIN 6.4 gm/dL (6.4-8.2); URIC ACID 9.4 mg/dL (2.6-6.0)
[2019-05-02 19:30] LABS: INTERNATIONAL NORM RATIO > 9.3 (2.0-3.5)
[2019-05-02 21:25] VITALS: BP 136/88
[2019-05-02 23:52] VITALS: BP 117/61
[2019-05-03 07:13] LABS: BASO % 0.1 % (0.0-1.0); HEMATOCRIT 32.6 % (37.0-47.0); HEMOGLOBIN 10.3 g/dl (12.0-16.0); LYMPH # 0.7 10*3/uL (1.3-4.4); LYMPH % 9.7 % (27.0-41.0); MEAN CELL VOLUME 93.1 fl (81.0-99.0); MEAN CORPUSCULAR HGB 29.4 pg (27.0-31.0); MEAN CORPUSCULAR HGB CONC 31.6 g/dl (33.0-37.0); MEAN PLATELET VOLUME 11.5 fl (9.6-12.3); MONO # 0.1 10*3/uL (0.1-1.0); MONO % 1.8 % (3.0-9.0); NEUT # 6.7 10*3/uL (2.3-7.9); NEUT % 87.7 % (47.0-73.0); PLATELET COUNT AUTOMATED 234 10*3/uL (130-400); RED CELL DISTRI WIDTH 13.7 % (0-14.5); WHITE BLOOD COUNT 7.6 10*3/uL (4.8-10.8)
[2019-05-03 07:28] LABS: ALBUMIN 2.9 gm/dl (3.1-4.5); CREATININE 1.74 mg/dL (0.55-1.02); PHOSPHOROUS 2.7 mg/dL (2.5-4.9); POTASSIUM 4.8 mmol/L (3.5-5.1); TOTAL PROTEIN 6.3 gm/dL (6.4-8.2)
[2019-05-03 07:31] LABS: INTERNATIONAL NORM RATIO 2.8 (2.0-3.5)
[2019-05-03 07:37] LABS: ACT PARTIAL THROMBO TIME 80.5 SECONDS (20.0-32.1)
[2019-05-03 08:00] VITALS: BP 125/68
[2019-05-03 12:00] VITALS: BP 131/60
[2019-05-03 13:21] LABS: BILIRUBIN NEGATIVE (NEGATIVE); BLOOD NEGATIVE (NEGATIVE); CLARITY CLEAR (CLEAR); COLOR YELLOW (YELLOW); GLUCOSE 3+ (NEGATIVE); KETONE NEGATIVE (NEGATIVE); SPECIFIC GRAVITY 1.025 (1.005-1.030)
[2019-05-03 13:22] LABS: LEUKO ESTERASE NEGATIVE (NEGATIVE); NITRITE NEGATIVE (NEGATIVE); UROBILINOGEN 0.2 E.U./dl (0.2-1.0)
[2019-05-03 13:24] LABS: EPITHELIAL CELLS 0-2; RBC 0-2 rbc/hpf (0-2)
[2019-05-03 13:25] LABS: URIC ACID CRYSTALS TRACE
[2019-05-03 16:00] VITALS: BP 146/71
[2019-05-03 20:00] VITALS: BP 118/50
[2019-05-04] VITALS: BP 121/53
[2019-05-04 06:49] LABS: INTERNATIONAL NORM RATIO 1.2 (2.0-3.5)
[2019-05-04 08:00] VITALS: BP 132/76
[2019-05-04 12:00] VITALS: BP 126/57
[2019-05-04] MEDS ORDERED: PREDNISONE10 MG PO (15:16)
[2019-05-04] MEDS ORDERED: XARE20MG PO (15:16)
== END 2019-05-04 15:40 | disposition home or self-care (01) | DRG 554 ==
LOC: ED 17:06 → EDHOLD 20:27 → 5E 20:27
PROVIDERS: Internal Medicine; Nurse Practitioner Family; Student in an Organized Health Care Education/Training Program; ADMIT Internal Medicine
DX: M19.071 Primary osteoarthritis, right ankle and foot (principal); E44.0 Moderate protein-calorie malnutrition; Z68.41 Body mass index [BMI] 40.0-44.9, adult; R79.1 Abnormal coagulation profile; M10.9 Gout, unspecified; D64.9 Anemia, unspecified; D86.9 Sarcoidosis, unspecified; E11.65 Type 2 diabetes mellitus with hyperglycemia; E78.5 Hyperlipidemia, unspecified; F41.9 Anxiety disorder, unspecified; E11.22 Type 2 diabetes mellitus with diabetic chronic kidney disease; N18.3 Chronic kidney disease, stage 3 (moderate); M06.9 Rheumatoid arthritis, unspecified; I12.9 Hypertensive chronic kidney disease with stage 1 through stage 4 chronic kidney disease, or unspecified chronic kidney disease; E55.9 Vitamin D deficiency, unspecified; G47.00 Insomnia, unspecified; R23.8 Other skin changes; E66.01 Morbid (severe) obesity due to excess calories; G89.4 Chronic pain syndrome; L84 Corns and callosities; Z86.711 Personal history of pulmonary embolism; Z88.0 Allergy status to penicillin; Z88.2 Allergy status to sulfonamides; Z91.041 Radiographic dye allergy status

== ENCOUNTER → 2019-06-07 | Outpatient (CLI) | payer MEDICARE ==
[~2019-06-07] MED LIST changes: +PREDNISONE10 MG PO
[2019-06-07 16:44] LABS: BILIRUBIN NEGATIVE (NEGATIVE); BLOOD NEGATIVE (NEGATIVE); CLARITY SL CLOUDY (CLEAR); COLOR YELLOW (YELLOW); GLUCOSE NEGATIVE (NEGATIVE); KETONE NEGATIVE (NEGATIVE); LEUKO ESTERASE TRACE (NEGATIVE); NITRITE NEGATIVE (NEGATIVE); SPECIFIC GRAVITY 1.025 (1.005-1.030); UROBILINOGEN 0.2 E.U./dl (0.2-1.0)
[2019-06-07 16:47] LABS: BACTERIA 1+; HYALINE CAST 15-20; MUCOUS 1+
[2019-06-07 16:55] LABS: CREATININE 2.02 mg/dL (0.55-1.02); POTASSIUM 3.8 mmol/L (3.5-5.1)
[2019-06-07 17:02] LABS: FREE T4 1.23 ng/dl (0.76-1.46); THYROID STIM HORMONE (HS) 1.16 uIU/ml (0.358-4.75)
== END | disposition home or self-care (01) ==
LOC: LAB 15:48
PROVIDERS: Internal Medicine
DX: E11.9 Type 2 diabetes mellitus without complications (principal); E78.49 Other hyperlipidemia; E55.9 Vitamin D deficiency, unspecified; E04.9 Nontoxic goiter, unspecified

== ENCOUNTER → 2020-01-18 | Outpatient (CLI) | payer MEDICARE ==
[2020-01-18 16:49] LABS: BASO % 0.5 % (0.0-1.0); EOS # 0.4 10*3/uL (0.0-0.4); EOS % 5.4 % (1.0-4.0); HEMATOCRIT 37.5 % (37.0-47.0); LYMPH # 1.7 10*3/uL (1.3-4.4); MEAN CELL VOLUME 98.4 fl (81.0-99.0); MEAN CORPUSCULAR HGB 32.3 pg (27.0-31.0); MEAN CORPUSCULAR HGB CONC 32.8 g/dl (33.0-37.0); MEAN PLATELET VOLUME 11.4 fl (9.6-12.3); MONO # 0.7 10*3/uL (0.1-1.0); MONO % 10.9 % (3.0-9.0); NEUT # 3.7 10*3/uL (2.3-7.9); NEUT % 56.7 % (47.0-73.0); PLATELET COUNT AUTOMATED 264 10*3/uL (130-400); RED BLOOD COUNT 3.81 10*6/uL (4.10-5.10); RED CELL DISTRI WIDTH 13.7 % (0-14.5); WHITE BLOOD COUNT 6.5 10*3/uL (4.8-10.8)
[2020-01-18 16:57] LABS: BILIRUBIN Negative (Negative); BLOOD Negative (Negative); CLARITY Clear (Clear); COLOR Yellow (Yellow); GLUCOSE Negative (Negative); KETONE Negative (Negative); LEUKO ESTERASE Trace (Negative); NITRITE Negative (Negative); UROBILINOGEN 0.2 E.U./dl (0.0-1.0)
[2020-01-18 17:07] LABS: URINE CREATININE RANDOM 61.6 mg/dL
[2020-01-18 17:19] LABS: ALBUMIN 3.6 gm/dl (3.1-4.5); CREATININE 1.31 mg/dL (0.55-1.02); POTASSIUM 3.8 mmol/L (3.5-5.1)
[2020-01-18 17:30] LABS: VITAMIN D, 25-HYDROXY 44.8 ng/mL (30-100)
[2020-01-18 17:31] LABS: PTH INTACT 41.8 pg/mL (18.5-88.0)
[2020-01-18 17:44] LABS: BACTERIA 1+
[2020-01-18 17:45] LABS: HYALINE CAST 16-20
== END | disposition home or self-care (01) ==
LOC: LAB 16:25
PROVIDERS: ATTEND Internal Medicine Nephrology
DX: E11.22 Type 2 diabetes mellitus with diabetic chronic kidney disease (principal); N18.30 Chronic kidney disease, stage 3 unspecified

== ENCOUNTER → 2020-06-11 | Outpatient (CLI) | payer MEDICARE ==
[~2020-06-11] MED LIST changes: +PERCOCET 5-3251 EACH PO
== END | disposition home or self-care (01) ==
LOC: COVID19 12:48
PROVIDERS: ATTEND Physician Assistant
DX: Z01.812 Encounter for preprocedural laboratory examination (principal); Z20.822 Contact with and (suspected) exposure to COVID-19

== ENCOUNTER → 2020-06-14 | Day surgery (SDC) | payer MEDICARE ==
[~2020-06-14] VITALS: Ht 157.4 cm; Wt 93.9 kg
[2020-06-14 09:25] VITALS: BP 146/98
[2020-06-14 12:08] VITALS: BP 117/58
[2020-06-14 12:38] VITALS: BP 127/66
== END ==
LOC: SDC 06-11 02:49
PROVIDERS: ATTEND Surgery
DX: M31.6 Other giant cell arteritis (principal); E78.00 Pure hypercholesterolemia, unspecified; I10 Essential (primary) hypertension; I25.10 Atherosclerotic heart disease of native coronary artery without angina pectoris; G43.909 Migraine, unspecified, not intractable, without status migrainosus; E11.40 Type 2 diabetes mellitus with diabetic neuropathy, unspecified; F41.9 Anxiety disorder, unspecified; M10.9 Gout, unspecified; Z85.3 Personal history of malignant neoplasm of breast; Z86.711 Personal history of pulmonary embolism; Z88.0 Allergy status to penicillin

== ENCOUNTER → 2020-08-25 | Outpatient (CLI) | payer MEDICARE ==
[2020-08-25 12:59] LABS: BASO % 0.5 % (0.0-1.0); EOS # 0.5 10*3/uL (0.0-0.4); EOS % 7.2 % (1.0-4.0); HEMATOCRIT 37.5 % (37.0-47.0); LYMPH # 1.7 10*3/uL (1.3-4.4); LYMPH % 27.2 % (27.0-41.0); MEAN CELL VOLUME 98.7 fl (81.0-99.0); MEAN CORPUSCULAR HGB 31.6 pg (27.0-31.0); MEAN PLATELET VOLUME 12.1 fl (9.6-12.3); MONO # 0.6 10*3/uL (0.1-1.0); MONO % 9.4 % (3.0-9.0); NEUT # 3.5 10*3/uL (2.3-7.9); NEUT % 55.4 % (47.0-73.0); PLATELET COUNT AUTOMATED 234 10*3/uL (130-400); RED CELL DISTRI WIDTH 12.9 % (0-14.5); WHITE BLOOD COUNT 6.4 10*3/uL (4.8-10.8)
[2020-08-25 13:12] LABS: ALBUMIN 3.2 gm/dl (3.1-4.5); CREATININE 1.21 mg/dL (0.55-1.02); POTASSIUM 4.5 mmol/L (3.5-5.1)
[2020-08-25 13:13] LABS: URINE CREATININE RANDOM 98.8 mg/dL
[2020-08-25 13:28] LABS: BILIRUBIN Negative (Negative); BLOOD Negative (Negative); CLARITY Clear (Clear); COLOR Yellow (Yellow); GLUCOSE Negative (Negative); KETONE Negative (Negative); LEUKO ESTERASE 2+ (Negative); NITRITE Negative (Negative); UROBILINOGEN 0.2 E.U./dl (0.0-1.0)
[2020-08-25 13:36] LABS: VITAMIN D, 25-HYDROXY 39.3 ng/mL (30-100)
[2020-08-25 13:37] LABS: PTH INTACT 30.6 pg/mL (18.5-88.0)
[2020-08-25 13:37] LABS: BACTERIA 1+
== END | disposition home or self-care (01) ==
LOC: LAB 12:21
PROVIDERS: ATTEND Internal Medicine Nephrology
DX: E11.22 Type 2 diabetes mellitus with diabetic chronic kidney disease (principal); N18.30 Chronic kidney disease, stage 3 unspecified; E55.9 Vitamin D deficiency, unspecified

== ENCOUNTER → 2020-12-28 | Outpatient (CLI) | payer MEDICARE ==
[2020-12-28 15:13] LABS: BASO # 0.1 10*3/uL (0.0-0.1); BASO % 0.6 % (0.0-1.0); EOS # 0.5 10*3/uL (0.0-0.4); EOS % 6.4 % (1.0-4.0); HEMATOCRIT 35.9 % (37.0-47.0); LYMPH # 2.7 10*3/uL (1.3-4.4); LYMPH % 33.8 % (27.0-41.0); MEAN CORPUSCULAR HGB 32.4 pg (27.0-31.0); MEAN CORPUSCULAR HGB CONC 31.8 g/dl (33.0-37.0); MEAN PLATELET VOLUME 10.9 fl (9.6-12.3); MONO # 0.7 10*3/uL (0.1-1.0); MONO % 8.6 % (3.0-9.0); NEUT # 4.1 10*3/uL (2.3-7.9); NEUT % 50.4 % (47.0-73.0); PLATELET COUNT AUTOMATED 232 10*3/uL (130-400); RED BLOOD COUNT 3.52 10*6/uL (4.10-5.10); RED CELL DISTRI WIDTH 13.5 % (0-14.5); WHITE BLOOD COUNT 8.1 10*3/uL (4.8-10.8)
[2020-12-28 15:29] LABS: CREATININE 1.22 mg/dL (0.55-1.02)
== END | disposition home or self-care (01) ==
LOC: LAB 14:57
PROVIDERS: ATTEND Internal Medicine Rheumatology
DX: M10.09 Idiopathic gout, multiple sites (principal); M15.0 Primary generalized (osteo)arthritis; M81.0 Age-related osteoporosis without current pathological fracture; Z79.899 Other long term (current) drug therapy; Z79.1 Long term (current) use of non-steroidal anti-inflammatories (NSAID)

== ENCOUNTER → 2021-01-17 | Outpatient (CLI) | payer MEDICARE ==
[2021-01-17 13:11] LABS: ALBUMIN 3.2 gm/dl (3.1-4.5); CREATININE 2.01 mg/dL (0.55-1.02); POTASSIUM 4.8 mmol/L (3.5-5.1)
== END | disposition home or self-care (01) ==
LOC: LAB 12:35
PROVIDERS: ATTEND Internal Medicine Nephrology
DX: N18.30 Chronic kidney disease, stage 3 unspecified (principal)

== ENCOUNTER → 2021-02-13 | Outpatient (CLI) | payer MEDICARE ==
[2021-02-13 18:38] LABS: HEMATOCRIT 36.3 % (37.0-47.0); MEAN CELL VOLUME 96.8 fl (81.0-99.0); MEAN CORPUSCULAR HGB 31.5 pg (27.0-31.0); MEAN CORPUSCULAR HGB CONC 32.5 g/dl (33.0-37.0); MEAN PLATELET VOLUME 11.2 fl (9.6-12.3); PLATELET COUNT AUTOMATED 184 10*3/uL (130-400); RED BLOOD COUNT 3.75 10*6/uL (4.10-5.10); RED CELL DISTRI WIDTH 13.4 % (0-14.5); WHITE BLOOD COUNT 9.4 10*3/uL (4.8-10.8)
[2021-02-13 18:39] LABS: BILIRUBIN Negative (Negative); BLOOD Negative (Negative); CLARITY Clear (Clear); COLOR Yellow (Yellow); GLUCOSE 3+ (Negative); KETONE Negative (Negative); LEUKO ESTERASE Negative (Negative); NITRITE Negative (Negative); PH 5.5 (4.5-8.0); UROBILINOGEN 0.2 E.U./dl (0.0-1.0)
[2021-02-13 18:49] LABS: BACTERIA TRACE
[2021-02-13 18:57] LABS: URINE CREATININE RANDOM 51.6 mg/dL
[2021-02-13 19:00] LABS: BASOPHILS 1 % (0-1); PLATELET SUFFICIENCY NORMAL (NORMAL); TOTAL CELLS COUNTED 100 #CELLS
[2021-02-13 19:04] LABS: ALBUMIN 2.8 gm/dl (3.1-4.5); CREATININE 1.54 mg/dL (0.55-1.02); POTASSIUM 4.6 mmol/L (3.5-5.1)
[2021-02-13 19:55] LABS: VITAMIN D, 25-HYDROXY 29.6 ng/mL (30-100)
[2021-02-13 20:10] LABS: PTH INTACT 99.7 pg/mL (18.5-88.0)
== END | disposition home or self-care (01) ==
LOC: LAB 17:40
PROVIDERS: ATTEND Internal Medicine Nephrology
DX: E11.9 Type 2 diabetes mellitus without complications (principal); E55.9 Vitamin D deficiency, unspecified

== ENCOUNTER 2021-05-31 17:56 | Emergency (ER) | payer MEDICARE ==
[~2021-05-31] VITALS: Ht 160 cm; Wt 82.6 kg
[~2021-05-31 17:56] MED LIST changes: -VITAMIN D32000 UNI2 PO; +VITAMIN D350 MC2 PO; -ZYRTEC10 M1 PO; +ZYRTEC10 M2 PO
[2021-05-31 17:58] VITALS: BP 109/52
[2021-05-31 18:15] LABS: BASO % 0.3 % (0.0-1.0); EOS % 0.3 % (1.0-4.0); HEMATOCRIT 28.6 % (37.0-47.0); LYMPH # 0.6 10*3/uL (1.3-4.4); LYMPH % 5.3 % (27.0-41.0); MEAN CELL VOLUME 93.8 fl (81.0-99.0); MEAN CORPUSCULAR HGB 29.8 pg (27.0-31.0); MEAN CORPUSCULAR HGB CONC 31.8 g/dl (33.0-37.0); MEAN PLATELET VOLUME 9.9 fl (9.6-12.3); MONO # 0.9 10*3/uL (0.1-1.0); MONO % 8.3 % (3.0-9.0); NEUT # 9.5 10*3/uL (2.3-7.9); NEUT % 84.7 % (47.0-73.0); PLATELET COUNT AUTOMATED 269 10*3/uL (130-400); RED BLOOD COUNT 3.05 10*6/uL (4.10-5.10); WHITE BLOOD COUNT 11.2 10*3/uL (4.8-10.8)
[2021-05-31 18:29] LABS: CREATININE 1.59 mg/dL (0.55-1.02); POTASSIUM 5.4 mmol/L (3.5-5.1); TOTAL PROTEIN 5.8 gm/dL (6.4-8.2)
[2021-05-31 19:22] LABS: BILIRUBIN Negative (Negative); BLOOD Negative (Negative); CLARITY Clear (Clear); COLOR Yellow (Yellow); GLUCOSE Negative (Negative); KETONE Negative (Negative); LEUKO ESTERASE Negative (Negative); NITRITE Negative (Negative)
[2021-05-31 19:28] LABS: BACTERIA 2+
[2021-05-31 19:29] LABS: EPITHELIAL CELLS 0-2; HYALINE CAST 0-2
[2021-05-31] MEDS ORDERED: CIPRO500 MG PO ×2 (20:41)
[2021-06-01] MEDS ORDERED: CIPRO500 MG PO (03:09)
[2021-06-02] MEDS ORDERED: ALLOPURINOL100 MG PO (01:28)
[2021-06-02] MEDS ORDERED: LISINOPRIL20 MG PO (01:36)
[2021-06-02] MEDS ORDERED: TRULICITY0.75 MG/0. SC (03:10)
[2021-06-02] MEDS ORDERED: DULOXETINE HCL30 MG PO (03:10)
[2021-06-02] MEDS ORDERED: Ipratropium Brom3 ML INH (03:11)
[2021-06-02] MEDS ORDERED: MORPHINE SULFAT15 MG PO (03:12)
[2021-06-02] MEDS ORDERED: METHOCARBAMOL750 M1 PO (03:12)
[2021-06-02] MEDS ORDERED: PERCOCET 5-3251 EACH PO (03:14)
[2021-06-02] MEDS ORDERED: TRIAMTERENE-HC1 EACH PO (03:15)
[2021-06-02] MEDS ORDERED: PHARMASSURE V500 MCG PO (03:16)
== END 2021-05-31 21:27 | disposition home or self-care (01) ==
LOC: ED 17:56
PROVIDERS: Student in an Organized Health Care Education/Training Program
DX: E11.65 Type 2 diabetes mellitus with hyperglycemia (principal); Z88.0 Allergy status to penicillin; Z91.041 Radiographic dye allergy status; Z88.8 Allergy status to other drugs, medicaments and biological substances; Z79.899 Other long term (current) drug therapy; Z90.49 Acquired absence of other specified parts of digestive tract; Z90.89 Acquired absence of other organs; Z98.890 Other specified postprocedural states

== ENCOUNTER → 2021-06-21 | Outpatient (CLI) | payer MEDICARE ==
[~2021-06-21] MED LIST changes: +CIPRO500 MG PO; +DULOXETINE HCL30 MG PO; +Ipratropium Brom3 ML INH; +METHOCARBAMOL750 M1 PO; +MORPHINE SULFAT15 MG PO; +PHARMASSURE V500 MCG PO; +TRIAMTERENE-HC1 EACH PO; +TRULICITY0.75 MG/0. SC
[2021-06-21 15:36] LABS: HEMATOCRIT 26.2 % (37.0-47.0); MEAN CELL VOLUME 90.3 fl (81.0-99.0); MEAN CORPUSCULAR HGB 27.9 pg (27.0-31.0); MEAN CORPUSCULAR HGB CONC 30.9 g/dl (33.0-37.0); MEAN PLATELET VOLUME 10.8 fl (9.6-12.3); PLATELET COUNT AUTOMATED 366 10*3/uL (130-400); RED CELL DISTRI WIDTH 15.9 % (0-14.5)
[2021-06-21 15:39] LABS: MANUAL DIFF REFLEX YES
[2021-06-21 15:56] LABS: CREATININE 1.96 mg/dL (0.55-1.02); POTASSIUM 5.3 mmol/L (3.5-5.1)
[2021-06-21 16:39] LABS: ATYPICAL LYMPHS 1 % (0-0); PLATELET SUFFICIENCY NORMAL (NORMAL); TOTAL CELLS COUNTED 100 #CELLS
[2021-06-21 16:40] LABS: OVALOCYTES FEW; SCHISTOCYTES FEW
[2021-06-21 20:51] LABS: BILIRUBIN Negative (Negative); BLOOD 2+ (Negative); CLARITY Cloudy (Clear); COLOR Yellow (Yellow); GLUCOSE Negative (Negative); KETONE Negative (Negative); LEUKO ESTERASE 3+ (Negative); NITRITE Negative (Negative); PH 5.5 (4.5-8.0); UROBILINOGEN 0.2 E.U./dl (0.0-1.0)
[2021-06-21 21:13] LABS: BACTERIA 2+; RBC 16-20 rbc/hpf (0-2); WBC TNTC wbc/hpf (0-5)
== END | disposition home or self-care (01) ==
LOC: LAB 14:53
PROVIDERS: ATTEND Specialist
DX: Z01.812 Encounter for preprocedural laboratory examination (principal); D68.8 Other specified coagulation defects; Z79.899 Other long term (current) drug therapy

== ENCOUNTER → 2021-08-16 | Outpatient (CLI) | payer MEDICARE ==
[2021-08-16 17:21] LABS: BASO % 0.6 % (0.0-1.0); EOS # 0.4 10*3/uL (0.0-0.4); EOS % 5.6 % (1.0-4.0); LYMPH # 2.1 10*3/uL (1.3-4.4); LYMPH % 32.2 % (27.0-41.0); MEAN CELL VOLUME 89.7 fl (81.0-99.0); MEAN CORPUSCULAR HGB 27.2 pg (27.0-31.0); MEAN CORPUSCULAR HGB CONC 30.3 g/dl (33.0-37.0); MEAN PLATELET VOLUME 10.6 fl (9.6-12.3); MONO # 0.7 10*3/uL (0.1-1.0); MONO % 9.9 % (3.0-9.0); NEUT # 3.4 10*3/uL (2.3-7.9); NEUT % 51.4 % (47.0-73.0); PLATELET COUNT AUTOMATED 294 10*3/uL (130-400); RED BLOOD COUNT 3.79 10*6/uL (4.10-5.10); RED CELL DISTRI WIDTH 17.2 % (0-14.5); WHITE BLOOD COUNT 6.6 10*3/uL (4.8-10.8)
[2021-08-16 17:24] LABS: BILIRUBIN Negative (Negative); BLOOD Negative (Negative); CLARITY Clear (Clear); COLOR Yellow (Yellow); GLUCOSE Negative (Negative); KETONE Negative (Negative); LEUKO ESTERASE Negative (Negative); NITRITE Negative (Negative); UROBILINOGEN 0.2 E.U./dl (0.0-1.0)
[2021-08-16 17:33] LABS: CREATININE 1.14 mg/dL (0.55-1.02); URIC ACID 6.8 mg/dL (2.6-6.0); URINE CREATININE RANDOM 46.5 mg/dL
[2021-08-16 18:01] LABS: VITAMIN D, 25-HYDROXY 37.1 ng/mL (30-100)
== END | disposition home or self-care (01) ==
LOC: LAB 16:49
PROVIDERS: ATTEND Internal Medicine Nephrology
DX: E11.22 Type 2 diabetes mellitus with diabetic chronic kidney disease (principal); E55.9 Vitamin D deficiency, unspecified; M10.9 Gout, unspecified; N18.30 Chronic kidney disease, stage 3 unspecified

== ENCOUNTER → 2021-08-26 | Day surgery (SDC) | payer MEDICARE ==
[~2021-08-26] VITALS: Ht 154.9 cm; Wt 87.5 kg
[2021-08-26 07:17] VITALS: BP 100/61
[2021-08-26 07:50] VITALS: BP 113/66
[2021-08-26 08:05] VITALS: BP 125/68
[2021-08-26 08:20] VITALS: BP 140/71
[2021-08-26 10:31] VITALS: BP 113/66
== END | disposition home or self-care (01) ==
LOC: SDC 08-22 08:00
PROVIDERS: ATTEND Surgery
DX: D64.9 Anemia, unspecified (principal); K57.30 Diverticulosis of large intestine without perforation or abscess without bleeding; K29.50 Unspecified chronic gastritis without bleeding; I10 Essential (primary) hypertension; E11.9 Type 2 diabetes mellitus without complications; M19.90 Unspecified osteoarthritis, unspecified site; E78.00 Pure hypercholesterolemia, unspecified; G43.909 Migraine, unspecified, not intractable, without status migrainosus; M10.9 Gout, unspecified; Z79.899 Other long term (current) drug therapy

== ENCOUNTER → 2021-11-25 | Outpatient (CLI) | payer MEDICARE ==
[2021-11-25 13:22] LABS: BILIRUBIN Negative (Negative); BLOOD Negative (Negative); CLARITY Cloudy (Clear); COLOR Yellow (Yellow); GLUCOSE Negative (Negative); KETONE Negative (Negative); LEUKO ESTERASE 1+ (Negative); NITRITE Negative (Negative); PH 6.5 (4.5-8.0); SPECIFIC GRAVITY 1.015 (1.001-1.030); UROBILINOGEN 0.2 E.U./dl (0.0-1.0)
[2021-11-25 13:39] LABS: THYROID STIM HORMONE (HS) 1.72 uIU/ml (0.358-4.75)
[2021-11-25 14:11] LABS: BACTERIA 1+
[2021-11-29 19:06] LABS: METHYLMALONIC ACID 290 nmol/L (0-378)
== END | disposition home or self-care (01) ==
LOC: LAB 12:41
PROVIDERS: ATTEND Psychiatry & Neurology Neurology
DX: I10 Essential (primary) hypertension (principal); R41.0 Disorientation, unspecified; Z79.899 Other long term (current) drug therapy; R53.83 Other fatigue

== ENCOUNTER → 2021-11-29 | Outpatient (CLI) | payer MEDICARE | END | disposition home or self-care (01) | LOC: MRI 11:03 | PROVIDERS: ATTEND Psychiatry & Neurology Neurology | DX: H74.8X1 Other specified disorders of right middle ear and mastoid (principal); R41.0 Disorientation, unspecified ==

== ENCOUNTER → 2022-01-02 | Outpatient (CLI) | payer MEDICARE ==
[2022-01-02 14:28] LABS: BASO % 0.4 % (0.0-1.0); EOS # 0.2 10*3/uL (0.0-0.4); EOS % 3.2 % (1.0-4.0); HEMATOCRIT 40.6 % (37.0-47.0); LYMPH # 1.3 10*3/uL (1.3-4.4); LYMPH % 24.3 % (27.0-41.0); MEAN CELL VOLUME 96.4 fl (81.0-99.0); MEAN CORPUSCULAR HGB 31.8 pg (27.0-31.0); MEAN PLATELET VOLUME 11.6 fl (9.6-12.3); MONO # 0.4 10*3/uL (0.1-1.0); MONO % 7.5 % (3.0-9.0); NEUT # 3.5 10*3/uL (2.3-7.9); NEUT % 64.2 % (47.0-73.0); PLATELET COUNT AUTOMATED 278 10*3/uL (130-400); RED BLOOD COUNT 4.21 10*6/uL (4.10-5.10); RED CELL DISTRI WIDTH 14.1 % (0-14.5); WHITE BLOOD COUNT 5.4 10*3/uL (4.8-10.8)
[2022-01-02 14:54] LABS: CREATININE 1.18 mg/dL (0.55-1.02); POTASSIUM 4.1 mmol/L (3.5-5.1); TOTAL PROTEIN 6.7 gm/dL (6.4-8.2)
== END | disposition home or self-care (01) ==
LOC: LAB 13:18
DX: N18.30 Chronic kidney disease, stage 3 unspecified (principal); C50.111 Malignant neoplasm of central portion of right female breast; L13.9 Bullous disorder, unspecified; K90.9 Intestinal malabsorption, unspecified; Z51.12 Encounter for antineoplastic immunotherapy; Z78.0 Asymptomatic menopausal state; Z79.811 Long term (current) use of aromatase inhibitors

== ENCOUNTER → 2022-02-07 | Outpatient (CLI) | payer MEDICARE ==
[2022-02-07 15:59] LABS: BASO % 0.5 % (0.0-1.0); EOS # 0.3 10*3/uL (0.0-0.4); EOS % 4.4 % (1.0-4.0); HEMATOCRIT 38.4 % (37.0-47.0); LYMPH # 1.2 10*3/uL (1.3-4.4); LYMPH % 20.1 % (27.0-41.0); MEAN CELL VOLUME 95.8 fl (81.0-99.0); MEAN CORPUSCULAR HGB 32.4 pg (27.0-31.0); MEAN CORPUSCULAR HGB CONC 33.9 g/dl (33.0-37.0); MEAN PLATELET VOLUME 11.2 fl (9.6-12.3); MONO # 0.6 10*3/uL (0.1-1.0); MONO % 10.2 % (3.0-9.0); NEUT # 3.8 10*3/uL (2.3-7.9); NEUT % 64.5 % (47.0-73.0); PLATELET COUNT AUTOMATED 232 10*3/uL (130-400); RED BLOOD COUNT 4.01 10*6/uL (4.10-5.10); RED CELL DISTRI WIDTH 13.3 % (0-14.5); WHITE BLOOD COUNT 5.9 10*3/uL (4.8-10.8)
[2022-02-07 16:06] LABS: BILIRUBIN Negative (Negative); BLOOD Negative (Negative); CLARITY Clear (Clear); COLOR Yellow (Yellow); GLUCOSE Negative (Negative); KETONE Negative (Negative); LEUKO ESTERASE Trace (Negative); NITRITE Negative (Negative); PH 5.5 (4.5-8.0); UROBILINOGEN 0.2 E.U./dl (0.0-1.0)
[2022-02-07 16:08] LABS: CHLORIDE 104 mmol/L (98-107); POTASSIUM 3.8 mmol/L (3.4-5.1); SODIUM 138 mmol/L (136-145)
[2022-02-07 16:13] LABS: URIC ACID 6.2 mg/dL (3.1-9.2); URINE CREATININE RANDOM 79.01 mg/dL
[2022-02-07 16:14] LABS: BUN 21 mg/dl (9-23); CREATININE 1.09 mg/dL (0.55-1.02)
[2022-02-07 16:25] LABS: VITAMIN D, 25-HYDROXY 42.9 ng/mL (30-100)
[2022-02-07 18:13] LABS: RBC 0-2 rbc/hpf (0-2)
== END | disposition home or self-care (01) ==
LOC: LAB 15:20
PROVIDERS: ATTEND Internal Medicine Nephrology
DX: N18.30 Chronic kidney disease, stage 3 unspecified (principal); E55.9 Vitamin D deficiency, unspecified; E11.9 Type 2 diabetes mellitus without complications; D63.1 Anemia in chronic kidney disease

== ENCOUNTER → 2022-12-10 | Day surgery (SDC) | payer MEDICARE ==
[~2022-12-10] VITALS: Ht 152.4 cm; Wt 90.7 kg
[~2022-12-10] MED LIST changes: +ALLOPURINOL300 MG PO; +CITALOPRAM10 MG PO; +PROLIA60 MG/M1 SC; +VITAMIN C1000 M5 PO; +VITAMIN D325 MCG PO
[2022-12-10 06:58] VITALS: BP 155/62
[2022-12-10 08:04] VITALS: BP 124/41
[2022-12-10 08:19] VITALS: BP 111/57
[2022-12-10 08:34] VITALS: BP 121/57
[2022-12-10 09:17] VITALS: BP 121/75
== END | disposition home or self-care (01) ==
LOC: SDC 12-05 08:45
PROVIDERS: ATTEND Ophthalmology
DX: E11.36 Type 2 diabetes mellitus with diabetic cataract (principal); H25.12 Age-related nuclear cataract, left eye; E11.22 Type 2 diabetes mellitus with diabetic chronic kidney disease; N18.30 Chronic kidney disease, stage 3 unspecified; Z79.899 Other long term (current) drug therapy; Z98.891 History of uterine scar from previous surgery; Z98.890 Other specified postprocedural states

== ENCOUNTER → 2023-01-07 | Day surgery (SDC) | payer MEDICARE ==
[~2023-01-07] VITALS: Ht 152 cm; Wt 88.0 kg
[~2023-01-07] MED LIST changes: +METHYLPRED-DP4 MG PO; +Ocuflox 0.3% 5 M5 ML OPH
[2023-01-07 06:57] VITALS: BP 152/71
[2023-01-07 08:07] VITALS: BP 128/67
[2023-01-07 08:22] VITALS: BP 177/64
[2023-01-07 08:37] VITALS: BP 126/62
[2023-01-07 09:15] VITALS: BP 128/67
== END | disposition home or self-care (01) ==
LOC: SDC 01-02 10:15
PROVIDERS: ATTEND Ophthalmology
DX: E11.36 Type 2 diabetes mellitus with diabetic cataract (principal); H25.811 Combined forms of age-related cataract, right eye; I12.9 Hypertensive chronic kidney disease with stage 1 through stage 4 chronic kidney disease, or unspecified chronic kidney disease; E11.22 Type 2 diabetes mellitus with diabetic chronic kidney disease; N18.30 Chronic kidney disease, stage 3 unspecified; E78.00 Pure hypercholesterolemia, unspecified; Z88.0 Allergy status to penicillin; Z88.1 Allergy status to other antibiotic agents; Z85.3 Personal history of malignant neoplasm of breast; Z96.653 Presence of artificial knee joint, bilateral; Z79.4 Long term (current) use of insulin; Z79.899 Other long term (current) drug therapy

== ENCOUNTER → 2023-02-09 | Outpatient (CLI) | payer MEDICARE ==
[2023-02-09 12:32] LABS: BASO % 0.5 % (0.0-1.0); EOS # 0.4 10*3/uL (0.0-0.4); EOS % 5.4 % (1.0-4.0); HEMATOCRIT 39.6 % (37.0-47.0); LYMPH # 1.8 10*3/uL (1.3-4.4); LYMPH % 23.9 % (27.0-41.0); MEAN CORPUSCULAR HGB 32.3 pg (27.0-31.0); MEAN CORPUSCULAR HGB CONC 32.6 g/dl (33.0-37.0); MEAN PLATELET VOLUME 11.3 fl (9.6-12.3); MONO # 0.7 10*3/uL (0.1-1.0); MONO % 8.8 % (3.0-9.0); NEUT # 4.5 10*3/uL (2.3-7.9); NEUT % 61.1 % (47.0-73.0); PLATELET COUNT AUTOMATED 233 10*3/uL (130-400); RED CELL DISTRI WIDTH 13.4 % (0-14.5); WHITE BLOOD COUNT 7.4 10*3/uL (4.8-10.8)
[2023-02-09 13:16] LABS: POTASSIUM 4.1 mmol/L (3.4-5.1); URIC ACID 5.1 mg/dL (3.1-7.8)
[2023-02-09 13:22] LABS: VITAMIN D, 25-HYDROXY 45.4 ng/mL (30-100)
== END | disposition home or self-care (01) ==
LOC: LAB 11:49
PROVIDERS: ATTEND Internal Medicine Nephrology
DX: E11.22 Type 2 diabetes mellitus with diabetic chronic kidney disease (principal); N18.30 Chronic kidney disease, stage 3 unspecified; E55.9 Vitamin D deficiency, unspecified; D63.1 Anemia in chronic kidney disease

== ENCOUNTER → 2023-07-13 | Outpatient (CLI) | payer MEDICARE ==
[~2023-07-13] MED LIST changes: +LASIX20 MG PO; +MELATONIN5 M1 SL; +ONDANSETRON HYDR4 M1 PO; +SENNOSIDES-DOC1 EACH PO
== END | disposition home or self-care (01) ==
LOC: MRI 08:00
PROVIDERS: ATTEND Nurse Practitioner Family
DX: I67.82 Cerebral ischemia (principal); G93.89 Other specified disorders of brain; I49.3 Ventricular premature depolarization; J32.3 Chronic sphenoidal sinusitis; E11.9 Type 2 diabetes mellitus without complications; I10 Essential (primary) hypertension; F02.A3 Dementia in other diseases classified elsewhere, mild, with mood disturbance

== ENCOUNTER → 2023-12-11 | Outpatient (CLI) | payer MEDICARE ==
[2023-12-12 05:07] LABS: HBSAG Negative (Negative); HEP B CORE AB, IGM Negative (Negative); HEPATITIS C ANTIBODY Non Reactive (Non Reactive)
== END | disposition home or self-care (01) ==
LOC: LAB 11:25
PROVIDERS: ATTEND Internal Medicine Hematology & Oncology
DX: C50.111 Malignant neoplasm of central portion of right female breast (principal); L13.9 Bullous disorder, unspecified; Z78.0 Asymptomatic menopausal state; Z11.59 Encounter for screening for other viral diseases

== ENCOUNTER → 2023-12-21 | Outpatient (CLI) | payer MEDICARE ==
[2023-12-21 11:20] LABS: POTASSIUM 4.4 mmol/L (3.4-5.1); TOTAL PROTEIN 6.9 gm/dL (6.0-8.0)
== END | disposition home or self-care (01) ==
LOC: LAB 10:34
PROVIDERS: ATTEND Internal Medicine Hematology & Oncology
DX: C50.111 Malignant neoplasm of central portion of right female breast (principal); L13.9 Bullous disorder, unspecified; Z78.0 Asymptomatic menopausal state

== ENCOUNTER 2024-01-07 09:35 | Emergency (ER) | payer MEDICARE ==
[~2024-01-07] VITALS: Ht 165.1 cm; Wt 95.3 kg
[2024-01-07 09:44] VITALS: BP 152/74
[2024-01-07] MEDS ORDERED: Acetaminophen/Oxycodone 5 MG/325 MG TABLET PO ONE (09:50)
[2024-01-20] MEDS ORDERED: DOXYCYCLINE HY100 M3 PO (17:37)
== END 2024-01-07 10:50 | disposition home or self-care (01) ==
LOC: ED 09:35
DX: S22.41XA Multiple fractures of ribs, right side, initial encounter for closed fracture (principal); S92.514A Nondisplaced fracture of proximal phalanx of right lesser toe(s), initial encounter for closed fracture; S62.522B Displaced fracture of distal phalanx of left thumb, initial encounter for open fracture; M25.562 Pain in left knee; M06.9 Rheumatoid arthritis, unspecified; E78.5 Hyperlipidemia, unspecified; E11.22 Type 2 diabetes mellitus with diabetic chronic kidney disease; I12.9 Hypertensive chronic kidney disease with stage 1 through stage 4 chronic kidney disease, or unspecified chronic kidney disease; N18.9 Chronic kidney disease, unspecified; E78.00 Pure hypercholesterolemia, unspecified; M10.9 Gout, unspecified; G43.909 Migraine, unspecified, not intractable, without status migrainosus; Z88.0 Allergy status to penicillin; Z91.041 Radiographic dye allergy status; Z88.2 Allergy status to sulfonamides; Z88.8 Allergy status to other drugs, medicaments and biological substances; Z96.653 Presence of artificial knee joint, bilateral; Z90.49 Acquired absence of other specified parts of digestive tract; Z90.89 Acquired absence of other organs; Z90.710 Acquired absence of both cervix and uterus; Z98.890 Other specified postprocedural states; W10.8XXA Fall (on) (from) other stairs and steps, initial encounter; Y93.89 Activity, other specified; Y92.89 Other specified places as the place of occurrence of the external cause; Y99.8 Other external cause status

== ENCOUNTER → 2024-01-11 | Outpatient (CLI) | payer MEDICARE ==
[2024-01-11 13:55] LABS: BASO % 0.3 % (0.0-1.0); EOS % 0.3 % (1.0-4.0); HEMATOCRIT 35.9 % (37.0-47.0); LYMPH # 0.5 10*3/uL (1.3-4.4); LYMPH % 4.6 % (27.0-41.0); MEAN CELL VOLUME 104.4 fl (81.0-99.0); MEAN CORPUSCULAR HGB 33.1 pg (27.0-31.0); MEAN CORPUSCULAR HGB CONC 31.8 g/dl (33.0-37.0); MEAN PLATELET VOLUME 10.8 fl (9.6-12.3); MONO # 0.4 10*3/uL (0.1-1.0); MONO % 3.6 % (3.0-9.0); NEUT # 9.6 10*3/uL (2.3-7.9); NEUT % 88.6 % (47.0-73.0); PLATELET COUNT AUTOMATED 242 10*3/uL (130-400); RED BLOOD COUNT 3.44 10*6/uL (4.10-5.10); RED CELL DISTRI WIDTH 14.5 % (0-14.5); WHITE BLOOD COUNT 10.8 10*3/uL (4.8-10.8)
[2024-01-11 14:18] LABS: POTASSIUM 4.5 mmol/L (3.4-5.1); TOTAL PROTEIN 6.8 gm/dL (6.0-8.0)
== END | disposition home or self-care (01) ==
LOC: LAB 13:20
PROVIDERS: ATTEND Internal Medicine Hematology & Oncology
DX: Z11.59 Encounter for screening for other viral diseases (principal); C50.111 Malignant neoplasm of central portion of right female breast; L13.9 Bullous disorder, unspecified; Z78.0 Asymptomatic menopausal state

== ENCOUNTER 2024-01-19 12:53 | Emergency (ER) | payer MEDICARE ==
[~2024-01-19] VITALS: Ht 152.4 cm; Wt 90.3 kg
[2024-01-19 13:09] VITALS: BP 178/78
[2024-01-19] MEDS ORDERED: CEPHALEXIN500 M1 PO (19:16)
[2024-01-20] MEDS ORDERED: DOXYCYCLINE HY100 M3 PO (17:37)
== END 2024-01-19 14:52 | disposition home or self-care (01) ==
LOC: ED 12:53
DX: S42.441A Displaced fracture (avulsion) of medial epicondyle of right humerus, initial encounter for closed fracture (principal); E11.22 Type 2 diabetes mellitus with diabetic chronic kidney disease; I12.9 Hypertensive chronic kidney disease with stage 1 through stage 4 chronic kidney disease, or unspecified chronic kidney disease; N18.9 Chronic kidney disease, unspecified; F41.9 Anxiety disorder, unspecified; E78.5 Hyperlipidemia, unspecified; G43.909 Migraine, unspecified, not intractable, without status migrainosus; M19.90 Unspecified osteoarthritis, unspecified site; E66.01 Morbid (severe) obesity due to excess calories; Z88.0 Allergy status to penicillin; Z91.041 Radiographic dye allergy status; Z88.2 Allergy status to sulfonamides; Z88.8 Allergy status to other drugs, medicaments and biological substances; Z79.82 Long term (current) use of aspirin; Z79.899 Other long term (current) drug therapy; Z68.30 Body mass index [BMI] 30.0-30.9, adult; Z85.3 Personal history of malignant neoplasm of breast; Z98.890 Other specified postprocedural states; Z96.653 Presence of artificial knee joint, bilateral; Z90.89 Acquired absence of other organs; Z90.49 Acquired absence of other specified parts of digestive tract; W18.39XA Other fall on same level, initial encounter; Y93.89 Activity, other specified; Y92.89 Other specified places as the place of occurrence of the external cause; Y99.8 Other external cause status

== ENCOUNTER → 2024-02-06 | Outpatient (CLI) | payer MEDICARE ==
[~2024-02-06] MED LIST changes: +CEPHALEXIN500 M1 PO; +DOXYCYCLINE HY100 M3 PO
[2024-02-06 10:43] LABS: BASO % 0.6 % (0.0-1.0); BILIRUBIN Negative (Negative); BLOOD Negative (Negative); CLARITY Clear (Clear); COLOR Yellow (Yellow); EOS # 0.2 10*3/uL (0.0-0.4); EOS % 3.1 % (1.0-4.0); GLUCOSE 1+ (Negative); HEMATOCRIT 36.8 % (37.0-47.0); KETONE Negative (Negative); LEUKO ESTERASE Trace (Negative); MEAN CELL VOLUME 106.4 fl (81.0-99.0); MEAN CORPUSCULAR HGB 32.9 pg (27.0-31.0); MEAN PLATELET VOLUME 11.2 fl (9.6-12.3); MONO # 0.9 10*3/uL (0.1-1.0); MONO % 13.2 % (3.0-9.0); NEUT # 3.6 10*3/uL (2.3-7.9); NEUT % 55.8 % (47.0-73.0); NITRITE Negative (Negative); PLATELET COUNT AUTOMATED 237 10*3/uL (130-400); RED BLOOD COUNT 3.46 10*6/uL (4.10-5.10); RED CELL DISTRI WIDTH 14.6 % (0-14.5); SPECIFIC GRAVITY 1.025 (1.001-1.030); UROBILINOGEN 0.2 E.U./dl (0.0-1.0); WHITE BLOOD COUNT 6.5 10*3/uL (4.8-10.8)
[2024-02-06 10:51] LABS: BACTERIA TRACE; EPITHELIAL CELLS 0-2; MUCOUS TRACE; WBC 21-30 wbc/hpf (0-5)
[2024-02-06 11:08] LABS: URINE CREATININE RANDOM 123.29 mg/dL
[2024-02-06 11:11] LABS: POTASSIUM 4.2 mmol/L (3.4-5.1)
[2024-02-06 11:28] LABS: VITAMIN D, 25-HYDROXY 38.9 ng/mL (30-100)
== END | disposition home or self-care (01) ==
LOC: LAB 10:20
PROVIDERS: ATTEND Internal Medicine Nephrology
DX: E11.22 Type 2 diabetes mellitus with diabetic chronic kidney disease (principal); N18.30 Chronic kidney disease, stage 3 unspecified; N25.81 Secondary hyperparathyroidism of renal origin; M10.9 Gout, unspecified; D63.1 Anemia in chronic kidney disease

== ENCOUNTER → 2024-03-15 | Outpatient (CLI) | payer MEDICARE ==
[2024-03-15 15:23] LABS: BASO % 0.3 % (0.0-1.0); EOS # 0.1 10*3/uL (0.0-0.4); EOS % 0.7 % (1.0-4.0); HEMATOCRIT 40.8 % (37.0-47.0); MEAN CELL VOLUME 98.8 fl (81.0-99.0); MEAN CORPUSCULAR HGB 32.4 pg (27.0-31.0); MEAN CORPUSCULAR HGB CONC 32.8 g/dl (33.0-37.0); MONO # 0.5 10*3/uL (0.1-1.0); MONO % 4.9 % (3.0-9.0); NEUT # 8.3 10*3/uL (2.3-7.9); NEUT % 84.1 % (47.0-73.0); PLATELET COUNT AUTOMATED 235 10*3/uL (130-400); RED BLOOD COUNT 4.13 10*6/uL (4.10-5.10); RED CELL DISTRI WIDTH 13.6 % (0-14.5); WHITE BLOOD COUNT 9.9 10*3/uL (4.8-10.8)
[2024-03-15 15:49] LABS: TOTAL PROTEIN 6.8 gm/dL (6.0-8.0)
== END | disposition home or self-care (01) ==
LOC: LAB 14:50
PROVIDERS: ATTEND Internal Medicine Hematology & Oncology
DX: C50.111 Malignant neoplasm of central portion of right female breast (principal); L13.9 Bullous disorder, unspecified; K90.9 Intestinal malabsorption, unspecified; Z11.59 Encounter for screening for other viral diseases; Z51.12 Encounter for antineoplastic immunotherapy; N18.30 Chronic kidney disease, stage 3 unspecified; Z51.11 Encounter for antineoplastic chemotherapy; Z79.811 Long term (current) use of aromatase inhibitors; Z78.0 Asymptomatic menopausal state

== ENCOUNTER → 2024-06-07 | Outpatient (CLI) | payer MEDICARE ==
[2024-06-07 12:43] LABS: BASO % 0.3 % (0.0-1.0); EOS % 0.4 % (1.0-4.0); HEMATOCRIT 39.6 % (37.0-47.0); MEAN CELL VOLUME 99.2 fl (81.0-99.0); MEAN CORPUSCULAR HGB 32.1 pg (27.0-31.0); MEAN CORPUSCULAR HGB CONC 32.3 g/dl (33.0-37.0); MEAN PLATELET VOLUME 11.3 fl (9.6-12.3); MONO # 0.5 10*3/uL (0.1-1.0); MONO % 5.3 % (3.0-9.0); NEUT # 8.1 10*3/uL (2.3-7.9); NEUT % 82.9 % (47.0-73.0); PLATELET COUNT AUTOMATED 275 10*3/uL (130-400); RED BLOOD COUNT 3.99 10*6/uL (4.10-5.10); WHITE BLOOD COUNT 9.8 10*3/uL (4.8-10.8)
[2024-06-07 13:13] LABS: POTASSIUM 3.9 mmol/L (3.4-5.1); TOTAL PROTEIN 6.4 gm/dL (6.0-8.0)
== END | disposition home or self-care (01) ==
LOC: LAB 12:06
PROVIDERS: ATTEND Specialist
DX: Z01.810 Encounter for preprocedural cardiovascular examination (principal); M80.08XA Age-related osteoporosis with current pathological fracture, vertebra(e), initial encounter for fracture

== ENCOUNTER → 2024-07-29 | Outpatient (CLI) | payer MEDICARE ==
[2024-07-29 12:14] LABS: BASO % 0.4 % (0.0-1.0); EOS # 0.2 10*3/uL (0.0-0.4); EOS % 2.5 % (1.0-4.0); HEMATOCRIT 39.9 % (37.0-47.0); MEAN CELL VOLUME 102.3 fl (81.0-99.0); MEAN CORPUSCULAR HGB 33.6 pg (27.0-31.0); MEAN CORPUSCULAR HGB CONC 32.8 g/dl (33.0-37.0); MEAN PLATELET VOLUME 11.3 fl (9.6-12.3); MONO # 0.8 10*3/uL (0.1-1.0); MONO % 9.4 % (3.0-9.0); NEUT # 5.5 10*3/uL (2.3-7.9); NEUT % 69.6 % (47.0-73.0); PLATELET COUNT AUTOMATED 242 10*3/uL (130-400); RED CELL DISTRI WIDTH 14.6 % (0-14.5)
[2024-07-29 12:44] LABS: URIC ACID 5.5 mg/dL (3.1-7.8)
[2024-07-29 12:48] LABS: VITAMIN D, 25-HYDROXY 44.8 ng/mL (30-100)
[2024-07-29 14:22] LABS: BACTERIA 1+; FINE GRANULAR CAST 0-2; RBC 0-2 rbc/hpf (0-2); WBC 31-40 wbc/hpf (0-5)
[2024-07-29 14:23] LABS: BILIRUBIN Negative (Negative); BLOOD Negative (Negative); CLARITY Clear (Clear); COLOR Yellow (Yellow); GLUCOSE 3+ (Negative); KETONE Trace (Negative); LEUKO ESTERASE Trace (Negative); MUCOUS TRACE; NITRITE Negative (Negative); SPECIFIC GRAVITY 1.015 (1.001-1.030); UROBILINOGEN 0.2 E.U./dl (0.0-1.0)
== END | disposition home or self-care (01) ==
LOC: LAB 11:47
PROVIDERS: ATTEND Internal Medicine Nephrology
DX: E11.22 Type 2 diabetes mellitus with diabetic chronic kidney disease (principal); N18.30 Chronic kidney disease, stage 3 unspecified; E55.9 Vitamin D deficiency, unspecified; D63.1 Anemia in chronic kidney disease

== ENCOUNTER 2024-12-25 14:24 | Emergency (ER) | payer MEDICARE ==
[~2024-12-25] VITALS: Ht 152.4 cm; Wt 91.2 kg
[2024-12-25 14:35] VITALS: BP 154/78
== END 2024-12-25 15:09 | disposition home or self-care (01) ==
LOC: ED 14:24
DX: B02.9 Zoster without complications (principal); E11.9 Type 2 diabetes mellitus without complications; M19.90 Unspecified osteoarthritis, unspecified site; M06.9 Rheumatoid arthritis, unspecified; I10 Essential (primary) hypertension; E78.00 Pure hypercholesterolemia, unspecified; M10.9 Gout, unspecified; G43.909 Migraine, unspecified, not intractable, without status migrainosus; Z98.890 Other specified postprocedural states; Z90.710 Acquired absence of both cervix and uterus; Z90.49 Acquired absence of other specified parts of digestive tract; Z90.89 Acquired absence of other organs; Z88.0 Allergy status to penicillin; Z88.2 Allergy status to sulfonamides; Z88.8 Allergy status to other drugs, medicaments and biological substances

== ENCOUNTER → 2025-02-04 | Outpatient (CLI) | payer MEDICARE ==
[2025-02-04 11:04] LABS: BASO # 0.0 10*3/uL (0.0-0.1); BASO % 0.6 % (0.0-1.0); BILIRUBIN Negative (Negative); BLOOD Trace-Lysed (Negative); CLARITY Clear (Clear); COLOR Yellow (Yellow); EOS # 0.4 10*3/uL (0.0-0.4); EOS % 5.7 % (1.0-4.0); KETONE Negative (Negative); LEUKO ESTERASE 1+ (Negative); MEAN CELL VOLUME 102.3 fl (81.0-99.0); MEAN CORPUSCULAR HGB 33.0 pg (27.0-31.0); MEAN PLATELET VOLUME 12.3 fl (9.6-12.3); MONO # 0.8 10*3/uL (0.1-1.0); MONO % 11.6 % (3.0-9.0); NEUT # 3.9 10*3/uL (2.3-7.9); NEUT % 54.2 % (47.0-73.0); NITRITE Negative (Negative); NUCLEATED RED BLOOD CELL 0.0 % (0.0-0.0); NUCLEATED RED BLOOD CELL 0.0 10*3/uL (0.0-0.0); PH 5.0 (4.5-8.0); PLATELET COUNT AUTOMATED 275 10*3/uL (130-400); RED CELL DISTRI WIDTH 13.2 % (0-14.5); SPECIFIC GRAVITY 1.020 (1.001-1.030); UROBILINOGEN 0.2 E.U./dl (0.0-1.0)
[2025-02-04 11:27] LABS: BUN 40.0 mg/dl (9-23)
[2025-02-04 12:18] LABS: BACTERIA 1+; VITAMIN D, 25-HYDROXY 49.3 ng/mL (30-100); WBC 21-30 wbc/hpf (0-5)
== END | disposition home or self-care (01) ==
LOC: LAB 10:11
PROVIDERS: ATTEND Internal Medicine Nephrology
DX: E11.22 Type 2 diabetes mellitus with diabetic chronic kidney disease (principal); N18.30 Chronic kidney disease, stage 3 unspecified; N25.81 Secondary hyperparathyroidism of renal origin; M10.9 Gout, unspecified; D63.1 Anemia in chronic kidney disease; E55.9 Vitamin D deficiency, unspecified